=== PATIENT | male | born 1950 | race Caucasian/White ===

== ENCOUNTER 2018-02-03 10:13 | Outpatient (CLI) | payer MEDICARE, OTHER ==
--- NOTE | 2018-02-03 16:17 | XRAY Report ---
Reason: ACUTE PAIN OF RIGHT KNEE Procedure Date: 02/03/2018 Accession Number: [id number] / [id number] Procedure: XR - Femur 2V RT CPT Code: FULL RESULT: EXAM: RIGHT FEMUR RADIOGRAPHY EXAM DATE: 02/03/2018 10:28 AM. CLINICAL HISTORY: Acute pain of right knee. COMPARISON: None. TECHNIQUE: 2 views. FINDINGS: Bones: Sclerotic foci is seen throughout the appendicular skeleton, suggestive of osseous metastatic disease which is consistent with partially visualized prostatic radiation seeds. No fracture is seen. Joints: The visualized hip and knee joints are normal. No effusions. Soft Tissues: There is advanced atherosclerotic disease. IMPRESSION: Metastatic osseous disease. RADIA
== END 2018-02-03 10:14 | disposition home or self-care (01) ==
LOC: DI 10:13
DX: C79.51 Secondary malignant neoplasm of bone (principal)

== ENCOUNTER 2018-05-26 10:42 | Outpatient (CLI) | payer MEDICARE, OTHER | END 2018-05-26 10:43 | disposition critical access hospital (66) | LOC: EMS 10:42 | PROVIDERS: ATTEND Surgery | DX: R10.30 Lower abdominal pain, unspecified (principal); M79.605 Pain in left leg; M79.604 Pain in right leg; C61 Malignant neoplasm of prostate | CPT/HCPCS: A0425; A0429 ==

== ENCOUNTER 2018-05-26 11:15 | Emergency (ER) | payer MEDICARE, OTHER ==
[2018-05-26] MEDS ORDERED: HYDROmorphone 1 MG/ML CARPUJECT IVP STA (11:33)
[2018-05-26] MEDS ORDERED: KETOROLAC 30 MG/ML VIAL IVP STA (11:33)
[2018-05-26] MEDS ORDERED: SODIUM CHLORIDE 0.9% 1,000 ML IV ONE (11:33)
[2018-05-26] MEDS ORDERED: ONDANSETRON 4 MG/2 ML VIAL IVP STA (11:33)
--- NOTE | 2018-05-26 11:36 | ED Physician Documentation ---
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 He states the pain in his back and groin are unrelenting and the pain regimen he has been on has been ineffective. He has been taking morphine sulfate 15 3 times daily and oxycodone 5 1-2 every 4 hours. The patient states that he does not otherwise feel ill but he has had some nausea. Review of Systems Constitutional: denies: Fever, Chills Eyes: denies: Decreased vision Ears: denies: Ear pain Nose: denies: Rhinorrhea / runny nose, Congestion Throat: denies: Sore throat Cardiac: denies: Chest pain / pressure, Palpitations Respiratory: denies: Dyspnea, Cough GI: reports: Abdominal Pain, Nausea, Vomiting : denies: Dysuria, Frequency Skin: denies: Rash Musculoskeletal: reports: Back pain, Extremity pain. denies: Neck pain Neurologic: denies: Generalized weakness, Focal weakness, Numbness PD PAST MEDICAL HISTORY - Present Medications Home Medications: Ambulatory Orders Medication Instructions Recorded Confirmed RX: Atorvastatin Calcium 05/26/18 RX: Dexamethasone 05/26/18 RX: Docusate Sodium 05/26/18 RX: LORazepam [Lorazepam] 05/26/18 RX: Lisinopril 05/26/18 RX: Morphine ER 15 mg PO BID 05/26/18 05/26/18 RX: Omeprazole 05/26/18 RX: Prednisone 05/26/18 RX: oxyCODONE [Roxicodone] 1 - 2 tab PO Q6HR 05/26/18 05/26/18 - Allergies Allergies/Adverse Reactions: Allergies Allergy/AdvReac Type Severity Reaction Status Date / Time No Known Drug Allergies Allergy Verified 05/26/18 11:34 PD ED PE NORMAL - Vitals Vital signs reviewed: Yes (hypertensive ) - General General: Alert and oriented X 3, Well developed/nourished, Other (68 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, No motor deficit, No sensory deficit, Normal speech Eye Opening: Spontaneous Motor: Obeys Commands Verbal: Oriented GCS Score: 15 - Psych Psych: Normal mood Results - Vitals Vitals: Vital Signs - 24 hr 05/26/18 05/26/18 05/26/18 11:18 12:08 13:00 Temperature 36.0 C L Heart Rate 100 96 101 H Respiratory 16 16 16 Rate Blood Pressure 131/76 H 144/79 H 139/74 H O2 Saturation 98 97 97 05/26/18 13:42 Temperature Heart Rate 102 H Respiratory 18 Rate Blood Pressure 122/72 O2 Saturation 97 Oxygen O2 Source Room air - Labs Labs: Laboratory Tests 05/26/18 05/26/18 05/26/18 11:56 11:56 11:56 WBC 11.5 H RBC 4.12 L Hgb 13.1 L Hct 38.1 L MCV 92.5 MCH 31.8 H MCHC 34.3 RDW 16.7 H Plt Count 155 MPV 7.7 Neut # (Auto) 9.6 H Lymph # (Auto) 0.7 L [place] # (Auto) 0.8 Eos # (Auto) 0.3 Baso # (Auto) 0.0 Absolute Nucleated RBC 0.00 Nucleated RBC % 0.0 Sodium 133 L Potassium 4.3 Chloride 95 L Carbon Dioxide 25 Anion Gap 13.0 BUN 28 H Creatinine 0.9 Estimated GFR (MDRD) 83 L Glucose 161 H Calcium 9.3 Total Bilirubin 0.7 AST 59 H ALT 28 Alkaline Phosphatase 389 H Troponin I < 0.04 Total Protein 7.2 Albumin 3.6 Globulin 3.6 Albumin/Globulin Ratio 1.0 Lipase 23 Urine Color Urine Clarity Urine pH Ur Specific Purdy Urine Protein Urine Glucose (UA) Urine Ketones Urine Occult Blood Urine Nitrite Urine Bilirubin Urine Urobilinogen Ur Leukocyte Esterase Urine RBC Urine WBC Ur Squamous Epith Cells Urine Bacteria Urine Mucus Ur Microscopic Review Urine Culture Comments 05/26/18 12:34 WBC RBC Hgb Hct MCV MCH MCHC RDW Plt Count MPV Neut # (Auto) Lymph # (Auto) [place] # (Auto) Eos # (Auto) Baso # (Auto) Absolute Nucleated RBC Nucleated RBC % Sodium Potassium Chloride Carbon Dioxide Anion Gap BUN Creatinine Estimated GFR (MDRD) Glucose Calcium Total Bilirubin AST ALT Alkaline Phosphatase Troponin I Total Protein Albumin Globulin Albumin/Globulin Ratio Lipase Urine Color DARK YELLOW Urine Clarity CLEAR Urine pH 5.5 Ur Specific [place] >=1.030 H Urine Protein 100 H Urine Glucose (UA) NEGATIVE Urine Ketones NEGATIVE Urine Occult Blood NEGATIVE Urine Nitrite NEGATIVE Urine Bilirubin NEGATIVE Urine Urobilinogen 0.2 (NORMAL) Ur Leukocyte Esterase NEGATIVE Urine RBC 0-5 Urine WBC 0-3 Ur Squamous Epith Cells NONE SEEN Urine Bacteria None Seen Urine Mucus Moderate Strands Ur Microscopic Review INDICATED Urine Culture Comments NOT INDICATED Procedures - IVC sono (time) 1130 Bedside IVC sono: IVC measures (cm) (1.04), IVC collapsed c insp (cm) (completee), Dehydration (est 1-2 liter deficit) PD MEDICAL DECISION MAKING - ED course Complexity details: reviewed results, re-evaluated patient, considered differential, d/w patient ED course: 68-year-old male with a tumor to his spine has had some recent radiation therapy and today he is having some issue with loss of pain control and dehydration. He is hydrated here in the emergency department he is given some intravenous Dilaudid and some dexamethasone and he feels much improved. I have asked him to increase his dose of his long-acting morphine to 30 mg in the morning. He will see his oncologist tomorrow for further advice. Today this appears to be a pain crisis and he does get relief with treatment. Departure - Departure Disposition: 01 Home, Self Care Clinical Impression: Dehydration due to radiation, Back pain Condition: Stable Instructions: ED Dehydration, NARCOTIC, Oral Follow-Up: NISSA LUCAS PA-C [Primary Care Provider] - Comments: Increase your dose of morphine to 30mg in the morning and 15 at night. Discharge Date/Time: 05/26/18 13:44
[2018-05-26 12:08] LABS: BASOPHILS % (AUTO) 0.2 %; EOSINOPHILS # (AUTO) 0.3 10^3/uL (0.0-0.7); EOSINOPHILS % (AUTO) 2.5 %; HGB - HEMOGLOBIN 13.1 g/dL (14.0-18.0); LYMPHOCYTES # (AUTO) 0.7 10^3/uL (1.5-3.5); LYMPHOCYTES % (AUTO) 6.4 %; MEAN CORPUSCULAR HEMOGLOBIN 31.8 pg (27.0-31.0); MEAN CORPUSCULAR HGB CONC 34.3 g/dL (32.0-36.0); MEAN CORPUSCULAR VOLUME 92.5 fL (80.0-94.0); MEAN PLATELET VOLUME 7.7 fL (7.4-11.4); MONOCYTES # (AUTO) 0.8 10^3/uL (0.0-1.0); MONOCYTES % (AUTO) 7.1 %; NEUTROPHILS # (AUTO) 9.6 10^3/uL (1.5-6.6); NEUTROPHILS % (AUTO) 83.8 %; PLT - PLATELET COUNT 155 10^3/uL (130-450); RED BLOOD COUNT 4.12 10^6/uL (4.70-6.10); RED CELL DISTRIBUTION WIDTH 16.7 % (12.0-15.0); WHITE BLOOD COUNT 11.5 x10^3/uL (4.8-10.8)
[2018-05-26 12:19] LABS: ALBUMIN 3.6 g/dL (3.2-5.5); BILIRUBIN,TOTAL 0.7 mg/dL (0.2-1.0); CALCIUM 9.3 mg/dL (8.5-10.3); CREATININE 0.9 mg/dL (0.6-1.2); TOTAL PROTEIN 7.2 g/dL (6.7-8.2)
[2018-05-26 12:45] LABS: BILIRUBIN,URINE NEGATIVE (NEGATIVE); GLUCOSE, URINE (UA) NEGATIVE (NEGATIVE); KETONES,URINE (UA) NEGATIVE (NEGATIVE); LEUKOCYTE ESTERASE, URINE NEGATIVE (NEGATIVE); NITRITE,URINE NEGATIVE (NEGATIVE); OCCULT BLOOD,URINE NEGATIVE (NEGATIVE); PH,URINE 5.5 PH (5.0-7.5); PROTEIN,URINE 100 mg/dL (NEGATIVE); UROBILINOGEN,URINE 0.2 (NORMAL) E.U./dL (NORMAL)
[2018-05-26 12:54] LABS: CLARITY,URINE CLEAR (CLEAR)
[2018-05-26 13:05] LABS: BACTERIA,URINE None Seen /HPF (None Seen); MUCUS,URINE Moderate Strands; RBC,URINE 0-5 /HPF (0-5); SQUAMOUS EPITHELIAL CELL,UR NONE SEEN (<= Few)
[2018-05-26 13:43] VITALS: BP 122/72
== END 2018-05-26 13:44 | disposition home or self-care (01) ==
LOC: EDUNIT# → ED 11:15
DX: E86.0 Dehydration (principal); M54.9 Dorsalgia, unspecified; R10.30 Lower abdominal pain, unspecified; T66.XXXA Radiation sickness, unspecified, initial encounter; Y84.2 Radiological procedure and radiotherapy as the cause of abnormal reaction of the patient, or of later complication, without mention of misadventure at the time of the procedure; D49.2 Neoplasm of unspecified behavior of bone, soft tissue, and skin
CPT/HCPCS: 36415; 80053; 81001; 83690; 84484; 85025; 96361; 96374; 99283; 99284; J1170; 81003; 87086

== ENCOUNTER 2018-06-09 16:31 | Outpatient (CLI) | payer MEDICARE, OTHER | END 2018-06-09 16:32 | disposition critical access hospital (66) | LOC: EMS 16:31 | PROVIDERS: ATTEND Surgery | DX: R53.1 Weakness (principal) | CPT/HCPCS: A0425; A0429 ==

== ENCOUNTER 2018-06-09 17:07 | Inpatient (IN) | payer MEDICARE, OTHER ==
--- NOTE | 2018-06-09 17:51 | ED Physician Documentation ---
History of Present Illness - Stated complaint Stated Complaint: WEAKNESS - Chief complaint Chief Complaint: General - History obtained from History obtained from: Patient - History of Present Illness Timing: Other (This is a 68-year-old gentleman with metastatic prostate cancer to bone. He started new chemotherapy 6 days ago. He get infusion at the [facility]. Over the next few days he has developed profound weakness and he has not been able to get up or walk in the last 3 or 4 days. He is not eating or drinking well but he denies any pain. There is no back or abdominal pain. He is not nauseous. He is mildly short of breath.) Review of Systems Constitutional: denies: Fever, Chills Nose: denies: Rhinorrhea / runny nose, Congestion Cardiac: denies: Chest pain / pressure, Palpitations Respiratory: reports: Dyspnea. denies: Cough GI: denies: Abdominal Pain, Nausea, Vomiting PD PAST MEDICAL HISTORY - Past Medical History Past Medical History: Yes Cardiovascular: High cholesterol Respiratory: None Neuro: CVA, Other Endocrine/Autoimmune: None GI: GERD, Other : Kidney stones, Other HEENT: None Psych: Anxiety Musculoskeletal: Other Derm: None Other Past Medical History: prostate cancer - Past Surgical History Past Surgical History: Yes - Present Medications Home Medications: Ambulatory Orders Medication Instructions Recorded Confirmed Atorvastatin Calcium 1 tab ORAL DAILY 05/26/18 06/09/18 Dexamethasone 1 tab ORAL DAILY 05/26/18 06/09/18 Docusate Sodium 1 cap ORAL DAILY 05/26/18 06/09/18 LORazepam [Lorazepam] 1 - 2 tab ORAL Q6HR PRN 05/26/18 06/09/18 Morphine ER 15 mg PO BID PRN 05/26/18 06/09/18 Omeprazole 1 tab ORAL DAILY 05/26/18 06/09/18 Prednisone 5 mg ORAL BID 05/26/18 06/09/18 oxyCODONE [Roxicodone] 1 - 2 tab PO Q6HR PRN 05/26/18 06/09/18 Prochlorperazine Maleate 10 mg ORAL Q6HR PRN 06/09/18 06/09/18 [Compazine] - Allergies Allergies/Adverse Reactions: Allergies Allergy/AdvReac Type Severity Reaction Status Date / Time No Known Drug Allergies Allergy Verified 05/26/18 11:34 - Social History Does the pt smoke?: No Smoking Status: Never smoker Does the pt drink ETOH?: No Does the pt have substance abuse?: No - Immunizations Immunizations are current?: Yes - POLST Patient has POLST: No PD ED PE NORMAL - Vitals Vital signs reviewed: Yes (Tachycardic) - General General: Alert and oriented X 3, No acute distress (Pale) - HEENT HEENT: PERRL, EOMI - Neck Neck: Supple, no meningeal sign, No bony TTP - Cardiac Cardiac: RRR (Tachycardic), No murmur - Respiratory Respiratory: No respiratory distress, Clear bilaterally - Abdomen Abdomen: Normal bowel sounds, Soft, Non tender - Back Back: No CVA TTP, No spinal TTP - Derm Derm: Normal color, Warm and dry - Extremities Extremities: No edema, No calf tenderness / cord - Neuro Neuro: Alert and oriented X 3, Normal speech Results - Vitals Vitals: Vital Signs - 24 hr 06/09/18 17:15 Temperature 37 C Heart Rate 118 H Respiratory 16 Rate Blood Pressure 142/84 H O2 Saturation 96 Oxygen O2 Source Room air - EKG (time done) 1805 Rate: Rate (enter#) (126) Rhythm: Sinus tachycardia, LAE [place]: Normal Intervals: Normal FL QRS: Normal Ischemia: Q waves (inferior) Computer interpretation: Agree with computer - Labs Labs: Laboratory Tests 06/09/18 06/09/18 06/09/18 18:01 18:01 18:01 WBC 9.0 RBC 4.55 L Hgb 14.6 Hct 43.0 MCV 94.4 H MCH 32.0 H MCHC 33.9 RDW 17.2 H Plt Count 60 L MPV 8.5 Neut # (Auto) Not Reportable Lymph # (Auto) Not Reportable [place] # (Auto) Not Reportable Eos # (Auto) Not Reportable Baso # (Auto) Not Reportable Absolute Nucleated RBC Not Reportable Total Counted 100 Band Neuts % (Manual) 16 H Abnorm Lymph % (Manual) 0 Nucleated RBC % Not Reportable Neutrophils # (Manual) 8.5 H Lymphocytes # (Manual) 0.3 L Monocytes # (Manual) 0.3 Eosinophils # (Manual) 0.0 Basophils # (Manual) 0.0 Differential Comment MANUAL DIFFERENTIAL Manual Slide Review Indicated Platelet Estimate DECREASED (<130,000) Platelet Morphology NORMAL EMERITA RBC Morph Micro Appear 1+ MACROCYTOSIS D-Dimer 1005.5 H Sodium 126 L Potassium 5.8 H Chloride 91 L Carbon Dioxide 22 Anion Gap 13.0 BUN 43 H Creatinine 1.0 Estimated GFR (MDRD) 74 L Glucose 231 H Lactic Acid Calcium 8.7 Total Bilirubin 1.7 H AST 75 H ALT 60 Alkaline Phosphatase 343 H Troponin I Total Protein 6.1 L Albumin 3.4 Globulin 2.7 Albumin/Globulin Ratio 1.3 Lipase 26 06/09/18 06/09/18 18:01 18:01 WBC RBC Hgb Hct MCV MCH MCHC RDW Plt Count MPV Neut # (Auto) Lymph # (Auto) [place] # (Auto) Eos # (Auto) Baso # (Auto) Absolute Nucleated RBC Total Counted Band Neuts % (Manual) Abnorm Lymph % (Manual) Nucleated RBC % Neutrophils # (Manual) Lymphocytes # (Manual) Monocytes # (Manual) Eosinophils # (Manual) Basophils # (Manual) Differential Comment Manual Slide Review Platelet Estimate Platelet Morphology RBC Morph Micro Appear D-Dimer Sodium Potassium Chloride Carbon Dioxide Anion Gap BUN Creatinine Estimated GFR (MDRD) Glucose Lactic Acid 4.8 H* Calcium Total Bilirubin AST ALT Alkaline Phosphatase Troponin I 0.04 Total Protein Albumin Globulin Albumin/Globulin Ratio Lipase - Rads (name of study) CT PA Radiology: EMP read contemporaneously (Numerous right-sided pulmonary emboli without evidence of heart strain, diffuse osteoblastic skeletaldisease concerning for metastases.) PD MEDICAL DECISION MAKING - ED course ED course: This is a 68-year-old gentleman with active prostate cancer presents with diffuse weakness and dyspnea on review of systems causing a d-dimer to be drawn which was quite high and reflex to a CT of the chest showing significant right- sided pulmonary emboli burden without evidence of right heart strain. He was started on heparin and I spoke with Dr. Ruiz to for admission at 7:39 PM. Departure - Departure Disposition: 66 [facility] DC/Xfer Clinical Impression: Prostate cancer, Dehydration Pulmonary embolism Qualifiers: Pulmonary embolism type: other Chronicity: acute Acute cor pulmonale presence: without acute cor pulmonale Qualified Code(s): I26.99 - Other pulmonary embolism without acute cor pulmonale Condition: Serious
[2018-06-09] MEDS ORDERED: SODIUM CHLORIDE 0.9% 1,000 ML IV ONE ×2 (17:52→18:27)
[2018-06-09 18:11] LABS: BASOPHILS % (AUTO) 0.9 %; HGB - HEMOGLOBIN 14.6 g/dL (14.0-18.0); LYMPHOCYTES % (AUTO) 1.2 %; MEAN CORPUSCULAR HGB CONC 33.9 g/dL (32.0-36.0); MEAN CORPUSCULAR VOLUME 94.4 fL (80.0-94.0); MEAN PLATELET VOLUME 8.5 fL (7.4-11.4); MONOCYTES % (AUTO) 1.3 %; NEUTROPHILS % (AUTO) 96.6 %; PLT - PLATELET COUNT 60 10^3/uL (130-450); RED BLOOD COUNT 4.55 10^6/uL (4.70-6.10); RED CELL DISTRIBUTION WIDTH 17.2 % (12.0-15.0)
[2018-06-09 18:15] LABS: ABNORMAL LYMPHS % (MANUAL) 0 %
[2018-06-09 18:22] LABS: ALBUMIN 3.4 g/dL (3.2-5.5); ALBUMIN/GLOBULIN RATIO 1.3 (1.0-2.2); BILIRUBIN,TOTAL 1.7 mg/dL (0.2-1.0); CALCIUM 8.7 mg/dL (8.5-10.3); TOTAL PROTEIN 6.1 g/dL (6.7-8.2)
[2018-06-09] MEDS ORDERED: IOVERSOL 320 100 ML VIAL IVP ONE ×2 (18:37→18:41)
[2018-06-09 19:00] LABS: BAND NEUTROPHILS % (MANUAL) 16 %; DIFFERENTIAL COMMENT MANUAL DIFFERENTIAL; LYMPHOCYTES # (MANUAL) 0.3 10^3/uL (1.5-3.5); LYMPHOCYTES % (MANUAL) 3 %; MONOCYTES # (MANUAL) 0.3 10^3/uL (0.0-1.0); NEUTROPHILS # (MANUAL) 8.5 10^3/uL (1.5-6.6); NEUTROPHILS % (MANUAL) 78 %; PLATELET ESTIMATE, MANUAL DECREASED (<130,000) (NORMAL); PLATELET MORPHOLOGY NORMAL APP (NORMAL); RBC MORPHOLOGY (MULTIPLE) 1+ MACROCYTOSIS (NORMAL)
[2018-06-09] MEDS ORDERED: HEPARIN 25000UNITS/500ML (D5W) 25,000 UNIT/500 ML BAG IV STA (19:03)
[2018-06-09] MEDS: IOVERSOL 320 100 ML VIAL IVP ONE (19:14)
[2018-06-09] MEDS ORDERED: HEPARIN 5,000 UNIT/ML VIAL ONE (19:18)
--- NOTE | 2018-06-09 19:24 | CT Report ---
Reason: weak, high dimer, dyspnea Procedure Date: 06/09/2018 Accession Number: [id number] / [id number] Procedure: CT - Chest Angio (PE) CPT Code: FULL RESULT: EXAM: CT ANGIOGRAM CHEST EXAM DATE: 06/09/2018 07:10 PM. CLINICAL HISTORY: Weak, high dimer, dyspnea. COMPARISON: None. TECHNIQUE: Routine helical imaging was performed through the chest in the pulmonary arterial phase. IV Contrast: OPTI 320 80 ML. Reconstructions: Coronal 3-D MIP reconstructions.Sagittal and coronal. In accordance with CT protocol optimization, one or more of the following dose reduction techniques were utilized for this exam: automated exposure control, adjustment of mA and/or KV based on patient size, or use of iterative reconstructive technique. FINDINGS: Pulmonary Arteries: Diagnostic quality: Adequate through the segmental arteries. There is a right pulmonary artery embolism with extension into numerous segmental branches. No main pulmonary artery saddle embolism or left lung emboli seen. RV/LV is within normal limits. There is no interventricular septal bowing. There is no reflux of contrast material in the IVC. Lungs/Pleura: No consolidation, nodules, or edema. No effusions or pneumothorax. Mediastinum: Normal heart size. No pericardial effusion. No lymphadenopathy. Coronary artery calcifications noted. Thoracic Aorta: Unremarkable. Upper Abdomen: Unremarkable. Other: Diffuse skeletal sclerosis. IMPRESSION: 1. Numerous right pulmonary emboli. No evidence of right heart strain. 2. Diffuse osteoblastic skeletal disease concerning for metastases. RADIA
[2018-06-09] MEDS ORDERED: MORPHINE IR 15 MG TABLET PO STA (19:35)
[2018-06-09] MEDS ORDERED: ACETAMINOPHEN 325 MG TABLET PO PRN (20:51)
[2018-06-09] MEDS ORDERED: SODIUM CHLORIDE FLUSH 0.9% 10 ML SYRINGE IVP PRN (20:51)
[2018-06-09] MEDS ORDERED: SODIUM CHLORIDE 0.9% 1,000 ML IV SCH (21:00)
[2018-06-09] MEDS ORDERED: LABETALOL 20 MG/4 ML SYRINGE IVP PRN (21:06)
[2018-06-09 22:18] LABS: INR 1.2 (0.8-1.2); PT - PROTHROMBIN TIME 13.2 secs (9.9-12.6)
[2018-06-09 22:26] LABS: PARTIAL THROMBOPLASTIN TIME 90.6 secs (24.9-33.3)
[2018-06-09 23:35] LABS: BILIRUBIN,URINE NEGATIVE (NEGATIVE); GLUCOSE, URINE (UA) 100 mg/dL (NEGATIVE); KETONES,URINE (UA) NEGATIVE (NEGATIVE); LEUKOCYTE ESTERASE, URINE NEGATIVE (NEGATIVE); NITRITE,URINE NEGATIVE (NEGATIVE); OCCULT BLOOD,URINE MODERATE (NEGATIVE); PH,URINE 5.5 PH (5.0-7.5); PROTEIN,URINE 100 mg/dL (NEGATIVE); UROBILINOGEN,URINE 0.2 (NORMAL) E.U./dL (NORMAL)
[2018-06-09 23:37] LABS: CLARITY,URINE CLEAR (CLEAR)
[2018-06-09 23:56] LABS: BACTERIA,URINE None Seen /HPF (None Seen); RBC,URINE None Seen /HPF (0-5); SQUAMOUS EPITHELIAL CELL,UR NONE SEEN (<= Few)
[2018-06-10] MEDS ORDERED: diltiaZEM INJ 5 MG/ML VIAL IVP ONE (00:03)
[2018-06-10] MEDS: oxyCODONE 5 MG TABLET PO PRN ×3 (00:25→15:49)
[2018-06-10] MEDS: SODIUM CHLORIDE FLUSH 0.9% 10 ML SYRINGE IVP SCH ×3 (00:26→18:58)
[2018-06-10] MEDS ORDERED: IOVERSOL 320 100 ML VIAL IVP ONE (00:45)
[2018-06-10 00:50] LABS: CALCIUM 8.4 mg/dL (8.5-10.3)
[2018-06-10] MEDS ORDERED: METOPROLOL 5 MG/5 ML VIAL IVP STA (01:12)
[2018-06-10] MEDS: IOVERSOL 320 100 ML VIAL IVP ONE (01:37)
[2018-06-10] MEDS: SODIUM CHLORIDE 0.9% 1,000 ML IV SCH ×5 (01:48→21:59)
--- NOTE | 2018-06-10 02:02 | CT Report ---
Reason: concern for infectious or ischemia. LA 6.5 Procedure Date: 06/10/2018 Accession Number: [id number] / [id number] Procedure: CT - Abdomen/Pelvis W/ CPT Code: FULL RESULT: EXAM: CT ABDOMEN AND PELVIS EXAM DATE: 06/10/2018 01:44 AM. CLINICAL HISTORY: Concern for infectious or ischemia. LA 6. 5. COMPARISONS: None. TECHNIQUE: Routine helical CT imaging was performed through the abdomen and pelvis. IV contrast: 60ML [id number]. Enteric contrast: No. Reconstructions: Coronal and sagittal. In accordance with CT protocol optimization, one or more of the following dose reduction techniques were utilized for this exam: automated exposure control, adjustment of mA and/or KV based on patient size, or use of iterative reconstructive technique. FINDINGS: Lung Bases: Minimal atelectasis. Liver: Normal. No masses. Gallbladder/Bile Ducts: Unremarkable. Spleen: Normal. Pancreas: Normal. Adrenal Glands: Normal. Kidneys: Normal. No masses or hydronephrosis. Peritoneal Cavity/Bowel: Normal. No free fluid, free air or adenopathy. No masses or acute inflammatory process. The appendix is well visualized and normal. Pelvic Organs: Contrast in the urinary bladder from previous CT. Brachytherapy seeds in the prostate. Vasculature: Atherosclerotic calcifications. No aneurysm. Bones: Diffuse osseous sclerosis, likely representing blastic prostate cancer metastases. Other: Left inguinal hernia, containing fat. IMPRESSION: No evidence of infection or bowel ischemia. RADIA
[2018-06-10] MEDS: HEPARIN 25000UNITS/500ML (D5W) 25,000 UNIT/500 ML BAG IV SCH ×2 (02:03→15:15)
[2018-06-10] MEDS: diltiaZEM INJ 125 MG in DEXTROSE 5% 100 ML IV SCH ×3 (02:10→23:46)
--- NOTE | 2018-06-10 04:46 | HISTORY & PHYSICAL EXAMINATION ---
Chief Complaint - Chief Complaint Chief Complaint: fatigue History of Present Illness - Admitted From Admitted From:: [facility] ED - History Obtained From History obtained from: patient - History of Present Illness HPI Comment/Other: Patient is a 68 y/o male with metastatic prostate cancer who follows with Dr Sherie Lakhani at the [facility]. He presented to the ED today with complain of not being able to stand up, thus not getting out of his room for the past 3-4 days. He reports being somewhat short of breath and complains of lower back pain. He denied chest pain, abd pain, nausea, vomiting or chills. He was noted to have a pale appearance in the ED and was tachycardic. At bedside the patient was getting worked up about not being able to reach his family. His blood pressure during this time was 180. It is reported that he started a new ch emotherapy last week. He can only recall paxil in his regimen. Work up for his presentation included a DDimer which came back significantly elevated. 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 As a result he is being admitted for further treatment History - Past Medical History Cardiovascular: reports: Hypertension (stopped taking lisinopril last week.), High cholesterol Respiratory: reports: None Neuro: reports: CVA, Other Endocrine/Autoimmune: reports: None GI: reports: GERD, Other : reports: Kidney stones, Other HEENT: reports: None Psych: reports: Anxiety Musculoskeletal: reports: Other Derm: reports: None MRSA Hx?: No Other Past Medical History: prostate cancer - Family & Social History Living arrangement: At home Living Situation: With family (with his son's family comprising of his and 3 children) - Substance History Use: Uses substance without health or social issues: NONE - POLST Patient has POLST: Yes POLST Status: Full Code Meds/Allgy - Home Medications Home Medications: Ambulatory Orders Medication Instructions Recorded Confirmed Atorvastatin Calcium 1 tab ORAL DAILY 05/26/18 06/09/18 Dexamethasone 1 tab ORAL DAILY 05/26/18 06/09/18 Docusate Sodium 1 cap ORAL DAILY 05/26/18 06/09/18 LORazepam [Lorazepam] 1 - 2 tab ORAL Q6HR PRN 05/26/18 06/09/18 Morphine ER 15 mg PO BID PRN 05/26/18 06/09/18 Omeprazole 1 tab ORAL DAILY 05/26/18 06/09/18 Prednisone 5 mg ORAL BID 05/26/18 06/09/18 oxyCODONE [Roxicodone] 1 - 2 tab PO Q6HR PRN 05/26/18 06/09/18 Prochlorperazine Maleate 10 mg ORAL Q6HR PRN 06/09/18 06/09/18 [Compazine] - Allergies Allergies/Adverse Reactions: Allergies Allergy/AdvReac Type Severity Reaction Status Date / Time No Known Drug Allergies Allergy Verified 05/26/18 11:34 Review of Systems - Constitutional Constitutional: reports: Fatigue, Weakness. denies: Fever - Eyes Eyes: denies: Pain, Blurred vision, Dipolpia - Ears, Nose & Throat Ears, Nose & Throat: denies: Ear pain, Nasal pain, Nasal discharge, Sore throat - Cardiovascular Cariovascular: reports: Lightheadedness. denies: Irregular heart rate, Palpitations - Respiratory Respiratory: reports: SOB at rest. denies: Cough, Wheezing - Gastrointestinal Gastrointestinal: denies: Abdominal pain, Abdominal distention, Constipation, Diarrhea, Nausea, Vomiting - Genitourinary Genitourinary: reports: Incontinence. denies: Dysuria, Frequency, Urgency, Hematuria, Flank pain - Musculoskeletal Musculoskeletal: reports: Back pain - Integumentary Integumentary: denies: Rash, Lesions, Dryness - Neurological Neurological: reports: Dizziness. denies: General weakness, Headache - Psychiatric Psychiatric: denies: Depression, Anxiety - Endocrine Endocrine: denies: Polyuria, Polydypsia, Polyphagia - Hematologic/Lymphatic Hematologic/Lymphatic: denies: Anemia, Bruising, Petechiae Prior Level of Functionality: Patient lives with his son and his son's family. His son's assists with setting up his pills. He is supposed to use a cane walking but does not always do. 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 He is also not supposed to be driving. Exam - Vital Signs Reviewed Vital Signs: Yes Vital Signs: Vital Signs x48h Temp Pulse Pulse Resp BP BP BP 06/10/18 02:10 94/83 H 06/10/18 01:37 110/82 H 06/10/18 00:50 177 H 95/66 06/10/18 00:45 130 H 124/83 H 06/10/18 00:40 157 H 102/61 06/10/18 00:22 117/79 06/09/18 23:35 37.0 C 97 18 156/86 H 06/09/18 22:25 149 H 139/90 H 06/09/18 21:49 36.8 C 104 H 16 181/98 H 06/09/18 20:47 36.6 C 127 H 18 159/85 H Pulse Ox 06/10/18 02:10 06/10/18 01:37 06/10/18 00:50 06/10/18 00:45 06/10/18 00:40 06/10/18 00:22 06/09/18 23:35 96 06/09/18 22:25 06/09/18 21:49 96 06/09/18 20:47 92 - Physical Exam General Appearance: positive: No acute distress, Alert, Other (Emotional, angry and getting more worked up) Eyes Bilateral: positive: Normal inspection, PERRL, EOMI ENT: positive: ENT inspection nml, No signs of dehydration Neck: positive: Nml inspection, Thyroid nml, No JVD, Trachea midline Respiratory: positive: Chest non-tender, No respiratory distress, Breath sounds nml. negative: Wheezes, Rales, Rhonchi Cardiovascular: positive: No murmur, Tachycardia Abdomen: positive: Non-tender, No organomegaly, Nml bowel sounds, No distention, Tenderness. negative: Guarding, Rebound, Hepatomegaly, Splenomegaly Back: positive: Nml inspection Skin: positive: Color nml, No rash, Warm, Dry, Pallor. negative: Diaphoresis, Skin rash Extremities: positive: Non-tender, Nml appearance, No pedal edema Neurologic/Psychiatric: positive: Oriented x3 Sepsis Event Note (H) - Evaluation Current Stage of Sepsis: Ruled out Conclusion/Plan - Problem List (1) Pulmonary embolism Conclusion/Plan: Like due to hypercoagulable state of prostate cancer Patient started on heparin gtt per protocol Patient will need to be switched to an oral anticoag 2D echo ordered to rule out right heart strain Qualifiers: Pulmonary embolism type: other Chronicity: acute Acute cor pulmonale presence: without acute cor pulmonale Qualified Code(s): I26.99 - Other pulmonary embolism without acute cor pulmonale (2) Atrial fibrillation with rapid ventricular response Conclusion/Plan: New onset. Suspect 2/2 PE Pulse was as high as 150's Currently on heparin drip Patient was given 10mg IV push of diltiazem with no change in heart rate. This was followed by 5mg IV of metoprolol. With still no change He was transferred to the ICU on diltiazem drip. If no change, next consideration will be digoxin 2D echo pending. Will trend troponin (3) Prostate cancer metastatic to bone Conclusion/Plan: Patient follows with Dr Sherie Lakhani At [facility]. Started new chemotherapy last week He is not sure of the full regimen but includes paxil Patient had seeds implanted in 2004 (4) Lactic acidosis Conclusion/Plan: Etiology undetermined ? Infection vs Dehydration Patient is afebrile. WBC normal CT chest abdomen/pelvis and UA were negative for infection There are no wounds/ulcers on patient's body. Blood cultures drawn 2D echo pending. Hydrating patient. Will continue trending lactic acid (5) Elevated alkaline phosphatase level Conclusion/Plan: Suspect 2/[address] abd/pelvis was negative for biliary duct dilation (6) Hyperkalemia Conclusion/Plan: Regular insulin 10mg IV + 1 amp dextrose 50 Will recheck. Hydrating patient (7) Back pain Conclusion/Plan: ?Acute on chronic ?Multifactorial 2/2 Metastatic cancer Managing pain with oxycodone. Patient also on morphine prn at home. Will resume once verified Qualifiers: Back pain location: low back pain Chronicity: acute Back pain laterality: bilateral Qualified Code(s): M54.41 - Lumbago with sciatica, right side (8) Hyperlipidemia Conclusion/Plan: On atorvastatin (9) Anxiety Conclusion/Plan: On lorazepam (10) GERD (gastroesophageal reflux disease) Conclusion/Plan: Protonix ordered - Lab Results Fish Bones: 06/09/18 18:01 06/10/18 00:30 Core Measures - Anticipated LOS I expect patient to be DC'd or transferred within 96 hours.: Yes - DVT/VTE - Prophylaxis VTE/DVT Device ordered at admit?: Yes VTE/DVT Prophylaxis med ordered at admit?: Yes
[2018-06-10] MEDS ORDERED: INSULIN REGULAR HUMAN 100 UNIT/1 ML 10 ML MDV IVP STA (05:37)
[2018-06-10] MEDS ORDERED: DEXTROSE 50% ABBOJECT 25 GM/50 ML SYRINGE IVP ONE (05:37)
[2018-06-10] MEDS: PANTOPRAZOLE 40 MG TABLET PO SCH (06:09)
[2018-06-10 06:18] LABS: BASOPHILS % (AUTO) 0.5 %; EOSINOPHILS % (AUTO) 0.4 %; HGB - HEMOGLOBIN 12.9 g/dL (14.0-18.0); LYMPHOCYTES # (AUTO) 0.3 10^3/uL (1.5-3.5); LYMPHOCYTES % (AUTO) 5.8 %; MEAN CORPUSCULAR HEMOGLOBIN 31.8 pg (27.0-31.0); MEAN CORPUSCULAR HGB CONC 33.4 g/dL (32.0-36.0); MEAN CORPUSCULAR VOLUME 95.3 fL (80.0-94.0); MEAN PLATELET VOLUME 8.9 fL (7.4-11.4); MONOCYTES # (AUTO) 0.1 10^3/uL (0.0-1.0); MONOCYTES % (AUTO) 2.1 %; NEUTROPHILS # (AUTO) 4.8 10^3/uL (1.5-6.6); NEUTROPHILS % (AUTO) 91.2 %; PLT - PLATELET COUNT 53 10^3/uL (130-450); RED BLOOD COUNT 4.05 10^6/uL (4.70-6.10); RED CELL DISTRIBUTION WIDTH 16.9 % (12.0-15.0); WHITE BLOOD COUNT 5.2 x10^3/uL (4.8-10.8)
[2018-06-10 09:06] LABS: CALCIUM 8.5 mg/dL (8.5-10.3); CREATININE 0.9 mg/dL (0.6-1.2)
[2018-06-10] MEDS: POLYETHYLENE GLYCOL 3350 17 GM PACKET PO SCH (09:20)
[2018-06-10 11:34] LABS: BASOPHILS % (AUTO) 0.7 %; EOSINOPHILS % (AUTO) 0.9 %; HGB - HEMOGLOBIN 13.8 g/dL (14.0-18.0); LYMPHOCYTES % (AUTO) 11.4 %; MEAN CORPUSCULAR HEMOGLOBIN 32.4 pg (27.0-31.0); MEAN CORPUSCULAR HGB CONC 34.5 g/dL (32.0-36.0); MEAN PLATELET VOLUME 9.2 fL (7.4-11.4); MONOCYTES % (AUTO) 2.8 %; NEUTROPHILS % (AUTO) 84.2 %; PLT - PLATELET COUNT 56 10^3/uL (130-450); RED BLOOD COUNT 4.26 10^6/uL (4.70-6.10); RED CELL DISTRIBUTION WIDTH 17.7 % (12.0-15.0); WHITE BLOOD COUNT 5.3 x10^3/uL (4.8-10.8)
[2018-06-10 11:35] LABS: ABNORMAL LYMPHS % (MANUAL) 0 %
[2018-06-10 12:05] LABS: BAND NEUTROPHILS % (MANUAL) 9 %; LYMPHOCYTES # (MANUAL) 0.2 10^3/uL (1.5-3.5); LYMPHOCYTES % (MANUAL) 4 %; NEUTROPHILS # (MANUAL) 5.1 10^3/uL (1.5-6.6); NEUTROPHILS % (MANUAL) 87 %
[2018-06-10 12:07] LABS: DIFFERENTIAL COMMENT MANUAL DIFFERENTIAL
[2018-06-10] MEDS ORDERED: LIDOCAINE 2% URO-JET 5 ML SYRINGE UR ONE (12:17)
[2018-06-10] MEDS: LORazepam 0.5 MG TABLET PO PRN ×2 (13:21→19:18)
[2018-06-10] MEDS ORDERED: PROCHLORPERAZINE INJ 10 MG in SODIUM CHLORIDE 0.9% 50 ML IV PRN (13:25)
[2018-06-10] MEDS: MORPHINE ER 15 MG TABLET PO PRN (14:10)
--- NOTE | 2018-06-10 17:08 | PROVIDER PROGRESS NOTE ---
Assessment/Plan - Problem List (1) Pulmonary emboli Assessment/Plan: The etiology is likely from being hypercoagulable with cancer. US of legs pending to evaluate for DVTs. Echo pending to evaluate for cor pulmonale. Pt not hypoxic. Heparin iv drip dosing was OKd by the Oncologist that was contacted last night by admitting Ball Ender. Will eventually transition to Coumadin or a NOAC. (2) Lactic acidosis Assessment/Plan: No signs of infection with normal WBC, neg CT chest for infiltrate or abd CT for source of infection or abnormal urinalysis. Potentially L.A. elevation from acute PEs or from cell break down due to recent chemotherapy. No empiric antibiotics were started therefore. Continue iv hydration. Monitor L.A. til it normalizes. (3) Atrial flutter with rapid ventricular response Assessment/Plan: TFTs were unremarkable, the etiology is undoubtedly the new pulmonary emboli. Rate control achieved intermitently with iv Diltiazem, but the slower rate did not help convert him to NSR. Will add Toprol XL 25 mg po bid. (4) Prostate cancer metastatic to bone Assessment/Plan: I spoke to Judith, the nurse of Dr Sherie Serra, his Oncologist at the [facility]. She was the one who sent him to the ER, after a [id number] called that the patient was weak and falling. The patient is in a Clinical Trial, gets liquid Pacitaxil and 2 chemo meds. They CAN cause thrombocytopenia. He does qualify for transfer to [facility] for higher level of care with specialists. I informed the patient of the conversation and he wants to think about wether he wants to be transferred. (5) Thrombocytopenia due to drugs Assessment/Plan: As above. Per the Oncologist that the admitting Ball Ender spoke to, observe the plt count closely, stop Heparin if < 50 or if signs of bleeding, Heparin chosen over Lovenox since if he needs intervention it would take longer for a Lovenox effect to resolve. (6) Hyponatremia Assessment/Plan: Pt on iv fluids for the elevated lactic acid level, using NS. Monitor BMP daily. (7) Urinary retention Assessment/Plan: He needs to stand to urinate. The residual urrine in the bladder was 390 cc and a Robertson was ordered, 400 cc drained. The patient was so uncomfortable, that he demanded the Robertson be withdrawn, which it was. Monitor I's and O's as possible. Monitor BUN/creat daily to watch for signs of uremia from obstruction. - Current Meds Current Meds: Current Medications Generic Name Dose Route Start Last Admin Trade Name Freq PRN Reason Stop Dose Admin Heparin Sodium/Dextrose 25,000 unit in 500 mls @ 35.38 mls/hr 06/09/18 22:00 06/10/18 15:15 IV 12 unit/kg/hr .Q14H8M GERRI 28.304 mls/hr Administration Protocol 15 UNIT/KG/HR Sodium Chloride 1,000 mls @ 150 mls/hr 06/09/18 23:14 06/10/18 15:18 Normal Saline 0.9% IV 150 mls/hr .Q6H40M GERRI Administration Diltiazem HCl 125 mg/ Dextrose 125 mls @ 5 mls/hr 06/10/18 01:00 06/10/18 15:26 IV 15 mg/hr .Q25H GERRI 15 mls/hr Titration Protocol 5 MG/HR Prochlorperazine Edisylate 10 52 mls @ 200 mls/hr 06/10/18 13:25 06/10/18 1 5:52 mg/ Sodium Chloride IV Infused Q6H PRN Infusion Nausea / Vomiting Lorazepam 0.5 mg 06/09/18 21:17 06/10/18 13:21 Ativan PO 0.5 mg TID PRN Administration Anxiety Morphine Sulfate 15 mg 06/10/18 12:51 06/10/18 14:10 PO 15 mg BID PRN Administration PAIN Oxycodone HCl 5 mg 06/09/18 21:16 06/10/18 15:49 Roxicodone PO 5 mg Q6H PRN Administration PAIN Pantoprazole Sodium 40 mg 06/10/18 07:00 06/10/18 06:09 Protonix PO 40 mg QDAC GERRI Administration Polyethylene Glycol 17 gm 06/10/18 09:00 06/10/18 09:20 Miralax PO Not Given DAILY GERRI Sodium Chloride 10 ml 06/10/18 01:00 06/10/18 09:20 Normal Saline Flush 0.9% IVP Not Given 0100,0900,1700 GERRI - Lab Result Fish Bone Diagrams: 06/10/18 11:23 02/13/19 08:53 - EKG Results EKG Interpreted Independently: Yes EKG Findings: Atrial flutter with 4:1 block, ventr rate 80, poss inf Q waves, poss prolonged QT interval. Since yesterday, the ventr rate is controlled now. - Additional Planning My Orders: My Active Orders 06/10/18 12:16 Robertson Insertion [RC] QSHIFT 06/10/18 12:51 Morphine ER 15 mg PO BID PRN 06/10/18 13:25 Prochlorperazine Inj [Compazine Inj] 10 mg Sodium Chloride 0.9% [Normal Saline 0.9%] 50 ml IV Q6H 06/10/18 21:00 Dexamethasone [Decadron] 8 mg PO BID 06/10/18 Lunch DIET [Regular Diet] [DIET] Subjective - Subjective Patient Reports: Resting Comfortably, Other (Is hungry, had no a.m. diet ordered by Ball Ender) Objective Vital Signs: Vital Signs - 24 hr 06/09/18 06/09/18 06/09/18 17:15 19:43 19:59 Temperature 37 C Heart Rate 118 H 103 H 106 H Heart Rate [ Brachial] Respiratory 16 16 19 Rate Blood Pressure 142/84 H 160/94 H 160/94 H Blood Pressure [Left Brachial artery] Blood Pressure [Right Brachial artery] O2 Saturation 96 95 96 06/09/18 06/09/18 06/09/18 20:47 21:49 22:25 Temperature 36.6 C 36.8 C Heart Rate 127 H Heart Rate [ 104 H 149 H Brachial] Respiratory 18 16 Rate Blood Pressure 159/85 H Blood Pressure 181/98 H [Left Brachial artery] Blood Pressure 139/90 H [Right Brachial artery] O2 Saturation 92 96 06/09/18 06/10/18 06/10/18 23:35 00:22 00:40 Temperature 37.0 C Heart Rate Heart Rate [ 97 157 H Brachial] Respiratory 18 Rate Blood Pressure 117/79 Blood Pressure [Left Brachial artery] Blood Pressure 156/86 H 102/61 [Right Brachial artery] O2 Saturation 96 06/10/18 06/10/18 06/10/18 00:45 00:50 01:37 Temperature Heart Rate Heart Rate [ 130 H 177 H Brachial] Respiratory Rate Blood Pressure 110/82 H Blood Pressure [Left Brachial artery] Blood Pressure 124/83 H 95/66 [Right Brachial artery] O2 Saturation 06/10/18 06/10/18 06/10/18 02:00 02:10 03:00 Temperature Heart Rate Heart Rate [ 141 H 145 H Brachial] Respiratory 10 L 23 Rate Blood Pressure 94/83 H Blood Pressure [Left Brachial artery] Blood Pressure 98/43 L 97/77 [Right Brachial artery] O2 Saturation 96 95 06/10/18 06/10/18 06/10/18 04:00 05:00 06:00 Temperature Heart Rate Heart Rate [ 76 77 78 Brachial] Respiratory 11 L 12 9 L Rate Blood Pressure Blood Pressure [Left Brachial artery] Blood Pressure 117/68 91/72 114/75 [Right Brachial artery] O2 Saturation 96 100 98 06/10/18 06/10/18 06/10/18 07:00 07:43 09:00 Temperature 36.0 C L 37.1 C Heart Rate Heart Rate [ 73 73 77 Brachial] Respiratory 9 L 14 10 L Rate Blood Pressure Blood Pressure [Left Brachial artery] Blood Pressure 97/70 116/64 118/62 [Right Brachial artery] O2 Saturation 96 96 96 06/10/18 06/10/18 06/10/18 10:00 11:00 11:47 Temperature Heart Rate Heart Rate [ 81 79 Brachial] Respiratory 11 L Rate Blood Pressure Blood Pressure [Left Brachial artery] Blood Pressure 118/62 134/65 H [Right Brachial artery] O2 Saturation 97 100 06/10/18 06/10/18 06/10/18 12:00 13:00 14:00 Temperature 37 C Heart Rate Heart Rate [ 75 77 76 Brachial] Respiratory 11 L 11 L 11 L Rate Blood Pressure Blood Pressure [Left Brachial artery] Blood Pressure 110/67 127/73 138/66 H [Right Brachial artery] O2 Saturation 99 98 98 06/10/18 06/10/18 06/10/18 15:00 15:26 15:28 Temperature Heart Rate Heart Rate [ 81 145 H 120 H Brachial] Respiratory 12 Rate Blood Pressure Blood Pressure [Left Brachial artery] Blood Pressure 131/65 H 158/102 H [Right Brachial artery] O2 Saturation 97 06/10/18 15:59 Temperature 37 C Heart Rate Heart Rate [ 77 Brachial] Respiratory 21 Rate Blood Pressure Blood Pressure [Left Brachial artery] Blood Pressure 108/64 [Right Brachial artery] O2 Saturation 97 Oxygen O2 Source Room air I&O (Last 24 Hrs): Intake and Output Totals x24h 06/08/18 06/09/18 06/10/18 23:59 23:59 23:59 Intake Total 2233.667 2546.031 Output Total 863 Balance 2233.667 1683.031 General: Alert, Oriented x3 HEENT: Mucous membr. moist/pink Neck: Supple, No JVD Neuro: Non Focal Cardiovascular: Regular rate, No murmurs Respiratory: No respiratory distress, Breath sounds nml Abdomen: Soft, No tenderness, Other (Obese) Extremities: No edema - Results Results: Laboratory Results WBC 5.3 x10^3/uL (4.8-10.8) 06/10/18 11:23 RBC 4.26 10^6/uL (4.70-6.10) L 06/10/18 11:23 Hgb 13.8 g/dL (14.0-18.0) L 06/10/18 11:23 Hct 40.0 % (42.0-52.0) L 06/10/18 11:23 MCV 94.0 fL (80.0-94.0) 06/10/18 11:23 MCH 32.4 pg (27.0-31.0) H 06/10/18 11:23 MCHC 34.5 g/dL (32.0-36.0) 06/10/18 11:23 RDW 17.7 % (12.0-15.0) H 06/10/18 11:23 Plt Count 56 10^3/uL (130-450) L 06/10/18 11:23 MPV 9.2 fL (7.4-11.4) 06/10/18 11:23 Neut # (Auto) Not Reportable 06/10/18 11:23 Lymph # (Auto) Not Reportable 06/10/18 11:23 Leon # (Auto) Not Reportable 06/10/18 11:23 Eos # (Auto) Not Reportable 06/10/18 11:23 Baso # (Auto) Not Reportable 06/10/18 11:23 Absolute Nucleated RBC Not Reportable 06/10/18 11:23 Total Counted 100 06/10/18 11:23 Band Neuts % (Manual) 9 % (0-10) 06/10/18 11:23 Abnorm Lymph % (Manual) 0 % 06/10/18 11:23 Nucleated RBC % Not Reportable 06/10/18 11:23 Neutrophils # (Manual) 5.1 10^3/uL (1.5-6.6) 06/10/18 11:23 Lymphocytes # (Manual) 0.2 10^3/uL (1.5-3.5) L 06/10/18 11:23 Monocytes # (Manual) 0.0 10^3/uL (0.0-1.0) 06/10/18 11:23 Eosinophils # (Manual) 0.0 10^3/uL (0-0.7) 06/10/18 11:23 Basophils # (Manual) 0.0 10^3/uL (0-0.1) 06/10/18 11:23 Differential Comment MANUAL DIFFERENTIAL 06/10/18 11:23 Manual Slide Review Indicated 06/09/18 18:01 WBC Morphology PELGER HUET ANOMALY (NORMAL) 2+ VACUOLATION (NORMAL) 06/10/18 11:23 WBC Morphology PELGER HUET ANOMALY (NORMAL) 2+ VACUOLATION (NORMAL) 06/10/18 11:23 Platelet Estimate DECREASED (<130,000) (NORMAL) 06/09/18 18:01 Platelet Morphology NORMAL EMERITA (NORMAL) 06/09/18 18:01 RBC Morph Micro Appear 1+ MACROCYTOSIS (NORMAL) 06/09/18 18:01 PT 13.2 secs (9.9-12.6) H 06/09/18 22:03 INR 1.2 (0.8-1.2) 06/09/18 22:03 APTT 90.6 secs (24.9-33.3) H 06/09/18 22:03 D-Dimer 1005.5 ng/mL (200.0-255.0) H 06/09/18 18:01 Anti-Xa Level 0.7 U/mL (-0.7) 06/10/18 07:59 Sodium 128 mmol/L (135-145) L 06/10/18 08:53 Potassium 4.9 mmol/L (3.5-5.0) 06/10/18 08:53 Chloride 95 mmol/L (101-111) L 06/10/18 08:53 Carbon Dioxide 22 mmol/L (21-32) 06/10/18 08:53 Anion Gap 11.0 (6-13) 06/10/18 08:53 BUN 35 mg/dL (6-20) H 06/10/18 08:53 Creatinine 0.9 mg/dL (0.6-1.2) 06/10/18 08:53 Estimated GFR (MDRD) 83 (>89) L 06/10/18 08:53 Glucose 174 mg/dL (70-100) H 06/10/18 08:53 Lactic Acid 3.6 mmol/L (0.5-2.2) H* 06/10/18 12:32 Calcium 8.5 mg/dL (8.5-10.3) 06/10/18 08:53 Total Bilirubin 1.7 mg/dL (0.2-1.0) H 06/09/18 18:01 AST 75 IU/L (10-42) H 06/09/18 18:01 ALT 60 IU/L (10-60) 06/09/18 18:01 Alkaline Phosphatase 343 IU/L (42-121) H 06/09/18 18:01 Troponin I 0.06 ng/mL (<0.49) 06/10/18 11:23 Total Protein 6.1 g/dL (6.7-8.2) L 06/09/18 18:01 Albumin 3.4 g/dL (3.2-5.5) 06/09/18 18:01 Globulin 2.7 g/dL (2.1-4.2) 06/09/18 18:01 Albumin/Globulin Ratio 1.3 (1.0-2.2) 06/09/18 18:01 Lipase 26 U/L (22-51) 06/09/18 18:01 Urine Color YELLOW 06/09/18 23:25 Urine Clarity CLEAR (CLEAR) 06/09/18 23:25 Urine pH 5.5 PH (5.0-7.5) 06/09/18 23:25 Ur Specific [place] 1.020 (1.002-1.030) 06/09/18 23:25 Urine Protein 100 mg/dL (NEGATIVE) H 06/09/18 23:25 Urine Glucose (UA) 100 mg/dL (NEGATIVE) H 06/09/18 23:25 Urine Ketones NEGATIVE mg/dL (NEGATIVE) 06/09/18 23:25 Urine Occult Blood MODERATE (NEGATIVE) H 06/09/18 23:25 Urine Nitrite NEGATIVE (NEGATIVE) 06/09/18 23:25 Urine Bilirubin NEGATIVE (NEGATIVE) 06/09/18 23:25 Urine Urobilinogen 0.2 (NORMAL) E.U./dL (NORMAL) 06/09/18 23:25 Ur Leukocyte Esterase NEGATIVE (NEGATIVE) 06/09/18 23:25 Urine RBC None Seen /HPF (0-5) 06/09/18 23:25 Urine WBC 0-3 /HPF (0-3) 06/09/18 23:25 Ur Squamous Epith Cells NONE SEEN (<= Few) 06/09/18 23:25 Urine Bacteria None Seen /HPF (None Seen) 06/09/18 23:25 Ur Microscopic Review INDICATED 06/09/18 23:25 Urine Culture Comments NOT INDICATED 06/09/18 23:25 MRSA Surveill Initial NEGATIVE (NEGATIVE) 06/10/18 01:44 Sepsis Event Note (H) - Evaluation Current Stage of Sepsis: Ruled out
[2018-06-10] MEDS: METOPROLOL SUCCINATE 25 MG TABLET PO SCH ×2 (19:18→21:00)
[2018-06-10] MEDS: MIN OIL/DIMETHICON/COCONUT OIL 92 GM TUBE TOP PRN (19:18)
--- NOTE | 2018-06-10 19:40 | ADVANCE CARE PLANNING NOTE ---
Advance Care Planning - Date/Time Date: 06/10/18 Time: 16:00 - Purpose of encounter Text: To establish his wishes regarding aggressivem==ness of care, given the new diagnoses on this admission. - Parties in attendance Parties in attendance: I spoke to the patient in his room. - Decisional capacity Decisional capacity of: He has full decisional capacity. - Subjective/Patient's story Subjective/Patient's story: He was admitted with muktiple PEs after coming to the ER for marked weakness. He is upset that he didn't have a diet ordered after CT imaging was completed. He has no SOB, and has no complaints other than weakness. - Objective/Medical story Objective/Medical Story: Hx of metestatic prostate CA to bone, bone pain in lower back, had chemo therapy 1 week ago in a Clinical Trial, with Dr Sherie Serra. He is admitted for complaints of marked weakness and found to have new multiple PEs, new Aflutter with RVR, new thrombocytopenia and lactic acidosis unexplained. He is on anticoagulation and iv fluids as well as iv Diltiazem for heart rate control plus oral B-blockers. - Goals of Care Goals of care determinations: He wants everything done for medical management. Due to multiple serious problems I offered to have him transferred to [place], if he is accepted. He declined to be transferred. - Plan Plan: Will not plan transfer today, continue aggressive management of the new pulmonary emboli, new Aflutter with rapid ventr. rate, hydrate for the elevated lactic acid level and monitor the CBC due to the low platelets. - Code Status Code Status: Attempt Resuscitation - Time Spent on Advance Care Planning Time spent on advance care plannin
[2018-06-10] MEDS ORDERED: LORazepam 2 MG/ML VIAL IVP PRN (20:37)
[2018-06-10] MEDS ORDERED: DIGOXIN 500 MCG/2 ML AMP IVP SCH (21:00)
[2018-06-10] MEDS: DEXAMETHASONE 4 MG TABLET PO SCH (21:17)
[2018-06-10] MEDS ORDERED: DIGOXIN 500 MCG/2 ML AMP IVP ONE (21:17)
[2018-06-10] MEDS ORDERED: HALOPERIDOL 5 MG/ML VIAL IM ONE (22:49)
[2018-06-10] MEDS ORDERED: HALOPERIDOL 5 MG/ML VIAL ONE (23:23)
--- NOTE | 2018-06-10 23:58 | Ultrasound Report ---
Reason: DYSPNEA,PE, ASSESS FOR DVT Procedure Date: 06/10/2018 Accession Number: [id number] / [id number] Procedure: US - Duplex Ext Veins Right CPT Code: FULL RESULT: EXAM: RIGHT LOWER EXTREMITY VENOUS ULTRASOUND EXAM DATE: 06/10/2018 02:33 PM. CLINICAL HISTORY: DYSPNEA,PE, ASSESS FOR DVT. COMPARISON: None. TECHNIQUE: Real-time sonographic vascular imaging was performed by the batting machine operator insulation through the lower extremity utilizing both color-flow and Doppler spectral analysis. Multiple sales solutions representative static images were saved for review. FINDINGS: Common Femoral Vein (CFV): Normal. CFV-GSV Junction: Normal. Profunda Femoral Vein (PFV): Normal. Femoral Vein (FV) Prox: Normal. Femoral Vein (FV) Mid: Normal. Femoral Vein (FV) Dist: Normal. Popliteal Vein: Normal. Posterior Tibial Veins: Normal. Peroneal Veins: Normal. Other: None. IMPRESSION: No evidence for deep venous thrombosis. RADIA
[2018-06-11] MEDS: MORPHINE ER 15 MG TABLET PO PRN ×2 (03:38→19:41)
[2018-06-11] MEDS: oxyCODONE 5 MG TABLET PO PRN ×3 (03:38→20:29)
[2018-06-11] MEDS ORDERED: DIGOXIN 500 MCG/2 ML AMP IVP SCH (05:00)
[2018-06-11] MEDS: SODIUM CHLORIDE FLUSH 0.9% 10 ML SYRINGE IVP SCH ×4 (05:05→22:43)
[2018-06-11] MEDS: SODIUM CHLORIDE 0.9% 1,000 ML IV SCH ×4 (05:13→20:30)
[2018-06-11] MEDS: PANTOPRAZOLE 40 MG TABLET PO SCH (06:58)
[2018-06-11] MEDS ORDERED: IOVERSOL 320 100 ML VIAL IVP ONE ×2 (08:03→08:41)
[2018-06-11] MEDS ORDERED: LORazepam 2 MG/ML VIAL IVP PRN ×3 (08:42→22:26)
[2018-06-11] MEDS: DEXAMETHASONE 4 MG TABLET PO SCH ×2 (08:49→20:30)
[2018-06-11] MEDS: METOPROLOL SUCCINATE 25 MG TABLET PO SCH ×2 (08:49→17:41)
[2018-06-11] MEDS: POLYETHYLENE GLYCOL 3350 17 GM PACKET PO SCH (08:50)
--- NOTE | 2018-06-11 08:52 | CT Report ---
Reason: change in mentation Procedure Date: 06/11/2018 Accession Number: [id number] / [id number] Procedure: CT - Head W/WO CPT Code: FULL RESULT: EXAM: CT HEAD EXAM DATE: 06/11/2018 08:37 AM. CLINICAL HISTORY: Change in mentation. Metastatic prostate cancer. COMPARISON: ABDOMEN/PELVIS W/ 06/10/2018 1:16 AM CHEST ANGIO 06/09/2018 6:56 PM. TECHNIQUE: Multiaxial CT images were obtained from the foramen magnum to the vertex. Reformats: Sagittal and coronal. IV contrast: 80 cc Optiray 320. In accordance with CT protocol optimization, one or more of the following dose reduction techniques were utilized for this exam: automated exposure control, adjustment of mA and/or KV based on patient size, or use of iterative reconstructive technique. FINDINGS: Parenchyma: No intraparenchymal hemorrhage. No evidence of mass, midline shift, or CT findings of infarction. No abnormal enhancement. Cates-white differentiation is distinct. Extraaxial Spaces: Normal for age. No subdural or epidural collections identified. Ventricles: Normal in size and position. Sinuses and Orbits: Imaged paranasal sinuses, orbits, and mastoids show no significant abnormality. Bones: No fracture. There are a few small scattered sclerotic foci particularly in the left frontal bone, left parietal bone, right orbital roof, and right greater sphenoid wing. Other: 1.7 x 0.7 cm subcutaneous mildly heterogeneous hyperdense circumscribed nodule in the right occipital area consistent with a sebaceous cyst. Moderate calcification in bilateral cavernous internal carotid arteries and intracranial bilateral vertebral arteries. IMPRESSION: 1. No evidence of brain metastasis. 2. No current CT evidence of acute CVA. No intracranial hemorrhage. 3. Small scattered sclerotic calvarial metastases. RADIA
[2018-06-11] MEDS ORDERED: APIXABAN 5 MG TABLET PO SCH (09:00)
--- NOTE | 2018-06-11 09:09 | PROVIDER PROGRESS NOTE ---
Assessment/Plan - Problem List (1) Acute alteration in mental status Assessment/Plan: Overnight he became agitated, pulled out iv, was not cooperative. Restraints and Haldol once and prn Ativan were ordered. Will obtain head CT to evaluate for structural change, especially brain mets. Will order a CIWA protocol and prn iv Ativan q1h, in case his new confusion is due to alcohol withdrawal, since he is here 72 hours, when withdrawal could start. He denied alcohol intake in ER or to admitting [employer], but may have withheld information. Today the sin and [id number] told me that he can be "grumpy and obstinate", but not confused or agitated usually. Possibly he is having "Sun downing". The low serum sodium may also be contributing to confusion. Continue ICU care with close monitoring. (2) Pulmonary emboli Assessment/Plan: No significant pulmonary problems and Echo did not show cor pulmonale. He had Dopplers ordered to eval for DVT and was only able to cooperate with venous Dopplers of one leg, due to agitation. His CHADS score = 3 (HTN, stroke hx) regarding his Afib, therefore will transition iv heparin drip to po Eliquis. (3) Atrial flutter with rapid ventricular response Assessment/Plan: HR was elevated overnight (possibly exacrbated by his agitation) and he received several Dig iv doses. HR is still intermittently 140-150. Will increase his B-jian dose. Check a Dig level in am tomorrow to possibly use po Dig in the future. When his rate is better controlled will also transition iv Cardizem drip to po Cardizem CD. His CHADS score = 3 (HTN, stroke hx), and he needs anticoagulation for his PEs, therefore will transition iv heparin drip to po Eliquis today. (4) Thrombocytopenia due to drugs Assessment/Plan: Plt count dropped to 49. No signs of bleeding. Will stop heparin and start PE doses of Eliquis. (5) Prostate cancer metastatic to bone Assessment/Plan: I discussed the option of transfer to [facility], associated with his outpatient [facility], after I spoke to the RN yesterday that knows his case. He declined being transferred yesterday. I will repeat the offer today. (6) Lactic acidosis Assessment/Plan: This slowly improved with iv hydration, no empiric antibiotics were started, etiology is unclear. (7) Hyponatremia Assessment/Plan: Possibly from iv fluids since his Diltiazem drip is in D5 and his Heparin drip is inD5 but he also gets iv NS at 150 c/hr. His I's and O's are unreliable because he refused a Robertson and does have some urinary incontinence. The low serum sodium may also be contributing to confusion. Monitor BMP daily. - Current Meds Current Meds: Current Medications Generic Name Dose Route Start Last Admin Trade Name Freq PRN Reason Stop Dose Admin Apixaban 5 mg 06/11/18 09:00 06/11/18 08:49 Eliquis PO 5 mg BID GERRI Administration Dexamethasone 8 mg 06/10/18 21:00 06/11/18 08:49 Decadron PO 8 mg BID GERRI Administration Sodium Chloride 1,000 mls @ 150 mls/hr 06/09/18 23:14 06/11/18 07:35 Normal Saline 0.9% IV 150 mls/hr .Q6H40M GERRI Infusion Diltiazem HCl 125 mg/ Dextrose 125 mls @ 5 mls/hr 06/10/18 01:00 06/11/18 07:35 IV 15 mg/hr .Q25H GERRI 15 mls/hr Titration Protocol 5 MG/HR Prochlorperazine Edisylate 10 52 mls @ 200 mls/hr 06/10/18 13:25 06/10/18 15:52 mg/ Sodium Chloride IV Infused Q6H PRN Infusion Nausea / Vomiting Metoprolol Succinate 25 mg 06/10/18 19:00 06/11/18 08:49 Toprol Xl PO 25 mg BID GERRI Administration Mineral Oil 1 applic 06/10/18 16:21 06/10/18 19:18 Cavilon TOP 1 applic PRN PRN Administration Skin Care Morphine Sulfate 15 mg 06/10/18 12:51 06/11/18 03:38 PO 15 mg BID PRN Administration PAIN Oxycodone HCl 5 mg 06/09/18 21:16 06/11/18 03:38 Roxicodone PO 5 mg Q6H PRN Administration PAIN Pantoprazole Sodium 40 mg 06/10/18 07:00 06/11/18 06:58 Protonix PO 40 mg QDAC GERRI Administration Polyethylene Glycol 17 gm 06/10/18 09:00 06/11/18 08:50 Miralax PO 17 gm DAILY GERRI Administration Sodium Chloride 10 ml 06/10/18 01:00 06/11/18 05:05 Normal Saline Flush 0.9% IVP Not Given 0100,0900,1700 GERRI - Lab Result Fish Bone Diagrams: 06/11/18 09:05 06/11/18 09:05 - Additional Planning My Orders: My Active Orders 06/10/18 12:51 Morphine ER 15 mg PO BID PRN 06/10/18 13:25 Prochlorperazine Inj [Compazine Inj] 10 mg Sodium Chloride 0.9% [Normal Saline 0.9%] 50 ml IV Q6H 06/10/18 19:00 Metoprolol Succinate [Toprol Xl] 25 mg PO BID 06/10/18 21:00 Dexamethasone [Decadron] 8 mg PO BID 06/10/18 Lunch DIET [Regular Diet] [DIET] 06/11/18 08:25 CIWA-Ar Score Assessment (IV) [RC] PRN 06/11/18 08:42 Straight Catheter Insertion [RC] PRN LORazepam INJ [Ativan Inj (Vial)] 1 mg IVP Q1H PRN 06/11/18 08:43 Blood Glucose POC [RC] Routine CIWA - AR Score Card [RC] Routine Routine Neuro Check [RC] Routine Routine CBC - COMP BLD CT W/AUTO DIFF [HEME] Routine 06/11/18 09:00 Apixaban [Eliquis] 5 mg PO BID 06/12/18 05:00 BMP - BASIC METABOLIC PANEL [CHEM] DAILYLAB CBC - COMP BLD CT W/AUTO DIFF [HEME] DAILYLAB 06/13/18 05:00 BMP - BASIC METABOLIC PANEL [CHEM] DAILYLAB CBC - COMP BLD CT W/AUTO DIFF [HEME] DAILYLAB Objective Vital Signs: Vital Signs - 24 hr 06/10/18 06/10/18 06/10/18 10:00 11:00 11:47 Temperature Heart Rate Heart Rate [ 81 79 Brachial] Respiratory 11 L Rate Blood Pressure Blood Pressure 118/62 134/65 H [Right Brachial artery] O2 Saturation 97 100 06/10/18 06/10/18 06/10/18 12:00 13:00 14:00 Temperature 37 C Heart Rate Heart Rate [ 75 77 76 Brachial] Respiratory 11 L 11 L 11 L Rate Blood Pressure Blood Pressure 110/67 127/73 138/66 H [Right Brachial artery] O2 Saturation 99 98 98 06/10/18 06/10/18 06/10/18 15:00 15:26 15:28 Temperature Heart Rate Heart Rate [ 81 145 H 120 H Brachial] Respiratory 12 Rate Blood Pressure Blood Pressure 131/65 H 158/102 H [Right Brachial artery] O2 Saturation 97 06/10/18 06/10/18 06/10/18 15:59 17:00 18:00 Temperature 37 C Heart Rate Heart Rate [ 77 141 H 155 H Brachial] Respiratory 21 11 L 14 Rate Blood Pressure Blood Pressure 108/64 171/72 H 126/94 H [Right Brachial artery] O2 Saturation 97 92 92 06/10/18 06/10/18 06/10/18 19:00 20:00 21:00 Temperature 37.0 C Heart Rate Heart Rate [ 95 110 H 108 H Brachial] Respiratory 18 18 18 Rate Blood Pressure Blood Pressure 126/94 H 114/65 118/91 H [Right Brachial artery] O2 Saturation 95 96 96 06/10/18 06/10/18 06/10/18 21:19 22:00 23:00 Temperature Heart Rate 153 H Heart Rate [ 152 H 119 H Brachial] Respiratory 16 9 L Rate Blood Pressure Blood Pressure 101/61 126/77 [Right Brachial artery] O2 Saturation 94 96 06/10/18 06/11/18 06/11/18 23:46 00:00 01:00 Temperature 36.1 C L Heart Rate Heart Rate [ 148 H 116 H Brachial] Respiratory 20 16 Rate Blood Pressure 126/77 Blood Pressure 121/83 H 142/89 H [Right Brachial artery] O2 Saturation 97 06/11/18 06/11/18 06/11/18 02:00 03:00 04:00 Temperature Heart Rate Heart Rate [ 128 H 100 97 Brachial] Respiratory 15 24 15 Rate Blood Pressure Blood Pressure 152/67 H 142/83 H 128/73 [Right Brachial artery] O2 Saturation 95 96 98 06/11/18 06/11/18 06/11/18 05:00 06:00 07:00 Temperature Heart Rate Heart Rate [ 111 H 78 100 Brachial] Respiratory 13 15 14 Rate Blood Pressure Blood Pressure 127/78 115/77 143/79 H [Right Brachial artery] O2 Saturation 95 93 97 06/11/18 08:00 Temperature 35.9 C L Heart Rate Heart Rate [ 149 H Brachial] Respiratory 14 Rate Blood Pressure Blood Pressure 148/126 H [Right Brachial artery] O2 Saturation 99 Oxygen O2 Source Room air I&O (Last 24 Hrs): Intake and Output Totals x24h 06/09/18 06/10/18 06/11/18 23:59 23:59 23:59 Intake Total 2233.667 4847.386 1519.932 Output Total 913 Balance 2233.667 3934.386 1519.932 General: Oriented x3, Other (Lethargic, buta nswers appropriately.) HEENT: Mucous membr. moist/pink, Other (Pale) Neck: Supple, No JVD Neuro: Non Focal Cardiovascular: Regular rate, No murmurs, Other (Telemetry killian shows underlying Aflutter) Respiratory: Breath sounds nml Abdomen: Soft, Other (Obese) Extremities: No edema - Results Results: Laboratory Results WBC 5.3 x10^3/uL (4.8-10.8) 06/10/18 11:23 RBC 4.26 10^6/uL (4.70-6.10) L 06/10/18 11:23 Hgb 13.8 g/dL (14.0-18.0) L 06/10/18 11:23 Hct 40.0 % (42.0-52.0) L 06/10/18 11:23 MCV 94.0 fL (80.0-94.0) 06/10/18 11:23 MCH 32.4 pg (27.0-31.0) H 06/10/18 11:23 MCHC 34.5 g/dL (32.0-36.0) 06/10/18 11:23 RDW 17.7 % (12.0-15.0) H 06/10/18 11:23 Plt Count 56 10^3/uL (130-450) L 06/10/18 11:23 MPV 9.2 fL (7.4-11.4) 06/10/18 11:23 Neut # (Auto) Not Reportable 06/10/18 11:23 Lymph # (Auto) Not Reportable 06/10/18 11:23 [place] # (Auto) Not Reportable 06/10/18 11:23 Eos # (Auto) Not Reportable 06/10/18 11:23 Baso # (Auto) Not Reportable 06/10/18 11:23 Absolute Nucleated RBC Not Reportable 06/10/18 11:23 Total Counted 100 06/10/18 11:23 Band Neuts % (Manual) 9 % (0-10) 06/10/18 11:23 Abnorm Lymph % (Manual) 0 % 06/10/18 11:23 Nucleated RBC % Not Reportable 06/10/18 11:23 Neutrophils # (Manual) 5.1 10^3/uL (1.5-6.6) 06/10/18 11:23 Lymphocytes # (Manual) 0.2 10^3/uL (1.5-3.5) L 06/10/18 11:23 Monocytes # (Manual) 0.0 10^3/uL (0.0-1.0) 06/10/18 11:23 Eosinophils # (Manual) 0.0 10^3/uL (0-0.7) 06/10/18 11:23 Basophils # (Manual) 0.0 10^3/uL (0-0.1) 06/10/18 11:23 Differential Comment MANUAL DIFFERENTIAL 06/10/18 11:23 Manual Slide Review Indicated 06/09/18 18:01 WBC Morphology PELGER HUET ANOMALY (NORMAL) 2+ VACUOLATION (NORMAL) 06/10/18 11:23 WBC Morphology PELGER HUET ANOMALY (NORMAL) 2+ VACUOLATION (NORMAL) 06/10/18 11:23 Platelet Estimate DECREASED (<130,000) (NORMAL) 06/09/18 18:01 Platelet Morphology NORMAL EMERITA (NORMAL) 06/09/18 18:01 RBC Morph Micro Appear 1+ MACROCYTOSIS (NORMAL) 06/09/18 18:01 PT 13.2 secs (9.9-12.6) H 06/09/18 22:03 INR 1.2 (0.8-1.2) 06/09/18 22:03 APTT 90.6 secs (24.9-33.3) H 06/09/18 22:03 D-Dimer 1005.5 ng/mL (200.0-255.0) H 06/09/18 18:01 Anti-Xa Level 0.7 U/mL (-0.7) 06/10/18 07:59 Sodium 128 mmol/L (135-145) L 06/10/18 08:53 Potassium 4.9 mmol/L (3.5-5.0) 06/10/18 08:53 Chloride 95 mmol/L (101-111) L 06/10/18 08:53 Carbon Dioxide 22 mmol/L (21-32) 06/10/18 08:53 Anion Gap 11.0 (6-13) 06/10/18 08:53 BUN 35 mg/dL (6-20) H 06/10/18 08:53 Creatinine 0.9 mg/dL (0.6-1.2) 06/10/18 08:53 Estimated GFR (MDRD) 83 (>89) L 06/10/18 08:53 Glucose 174 mg/dL (70-100) H 06/10/18 08:53 Lactic Acid 3.6 mmol/L (0.5-2.2) H* 06/10/18 12:32 Calcium 8.5 mg/dL (8.5-10.3) 06/10/18 08:53 Total Bilirubin 1.7 mg/dL (0.2-1.0) H 06/09/18 18:01 AST 75 IU/L (10-42) H 06/09/18 18:01 ALT 60 IU/L (10-60) 06/09/18 18:01 Alkaline Phosphatase 343 IU/L (42-121) H 06/09/18 18:01 Troponin I 0.06 ng/mL (<0.49) 06/10/18 11:23 Total Protein 6.1 g/dL (6.7-8.2) L 06/09/18 18:01 Albumin 3.4 g/dL (3.2-5.5) 06/09/18 18:01 Globulin 2.7 g/dL (2.1-4.2) 06/09/18 18:01 Albumin/Globulin Ratio 1.3 (1.0-2.2) 06/09/18 18:01 Lipase 26 U/L (22-51) 06/09/18 18:01 Urine Color YELLOW 06/09/18 23:25 Urine Clarity CLEAR (CLEAR) 06/09/18 23:25 Urine pH 5.5 PH (5.0-7.5) 06/09/18 23:25 Ur Specific [place] 1.020 (1.002-1.030) 06/09/18 23:25 Urine Protein 100 mg/dL (NEGATIVE) H 06/09/18 23:25 Urine Glucose (UA) 100 mg/dL (NEGATIVE) H 06/09/18 23:25 Urine Ketones NEGATIVE mg/dL (NEGATIVE) 06/09/18 23:25 Urine Occult Blood MODERATE (NEGATIVE) H 06/09/18 23:25 Urine Nitrite NEGATIVE (NEGATIVE) 06/09/18 23: Urine Bilirubin NEGATIVE (NEGATIVE) 06/09/18 23:25 Urine Urobilinogen 0.2 (NORMAL) E.U./dL (NORMAL) 06/09/18 23:25 Ur Leukocyte Esterase NEGATIVE (NEGATIVE) 06/09/18 23:25 Urine RBC None Seen /HPF (0-5) 06/09/18 23:25 Urine WBC 0-3 /HPF (0-3) 06/09/18 23:25 Ur Squamous Epith Cells NONE SEEN (<= Few) 06/09/18 23:25 Urine Bacteria None Seen /HPF (None Seen) 06/09/18 23:25 Ur Microscopic Review INDICATED 06/09/18 23:25 Urine Culture Comments NOT INDICATED 06/09/18 23: MRSA Surveill Initial NEGATIVE (NEGATIVE) 06/10/18 01:44 Sepsis Event Note (H) - Evaluation Current Stage of Sepsis: Ruled out
[2018-06-11 09:23] LABS: BASOPHILS % (AUTO) 0.3 %; EOSINOPHILS % (AUTO) 2.6 %; HGB - HEMOGLOBIN 12.4 g/dL (14.0-18.0); LYMPHOCYTES % (AUTO) 6.7 %; MEAN CORPUSCULAR HEMOGLOBIN 32.3 pg (27.0-31.0); MEAN CORPUSCULAR HGB CONC 34.4 g/dL (32.0-36.0); MEAN CORPUSCULAR VOLUME 93.9 fL (80.0-94.0); MEAN PLATELET VOLUME 8.5 fL (7.4-11.4); MONOCYTES % (AUTO) 8.5 %; NEUTROPHILS % (AUTO) 81.9 %; PLT - PLATELET COUNT 49 10^3/uL (130-450); RED BLOOD COUNT 3.85 10^6/uL (4.70-6.10); RED CELL DISTRIBUTION WIDTH 16.8 % (12.0-15.0); WHITE BLOOD COUNT 3.5 x10^3/uL (4.8-10.8)
[2018-06-11 09:26] LABS: CREATININE 0.7 mg/dL (0.6-1.2)
[2018-06-11 09:34] LABS: ABNORMAL LYMPHS % (MANUAL) 0 %
[2018-06-11] MEDS: HEPARIN 25000UNITS/500ML (D5W) 25,000 UNIT/500 ML BAG IV SCH (09:44)
[2018-06-11] MEDS: diltiaZEM INJ 125 MG in DEXTROSE 5% 100 ML IV SCH ×2 (09:45→18:45)
[2018-06-11 09:47] LABS: BAND NEUTROPHILS % (MANUAL) 6 %; LYMPHOCYTES # (MANUAL) 0.2 10^3/uL (1.5-3.5); LYMPHOCYTES % (MANUAL) 7 %; METAMYELOCYTES % (MANUAL) 1 %; MONOCYTES # (MANUAL) 0.6 10^3/uL (0.0-1.0); NEUTROPHILS # (MANUAL) 2.7 10^3/uL (1.5-6.6); NEUTROPHILS % (MANUAL) 70 %
[2018-06-11 09:48] LABS: PLATELET MORPHOLOGY NORMAL APPEARANCE (NORMAL); RBC MORPHOLOGY (MULTIPLE) NORMAL APPEARANCE (NORMAL)
[2018-06-11 09:49] LABS: PLATELET ESTIMATE, MANUAL DECREASED (<130,000) (NORMAL)
[2018-06-11 10:01] LABS: DIFFERENTIAL COMMENT MANUAL DIFFERENTIAL
[2018-06-11 13:20] LABS: CALCIUM 8.2 mg/dL (8.5-10.3)
[2018-06-11 13:38] LABS: BILIRUBIN,DIRECT 0.4 mg/dL (0.1-0.5); BILIRUBIN,TOTAL 1.1 mg/dL (0.2-1.0); TOTAL PROTEIN 5.3 g/dL (6.7-8.2)
[2018-06-11] MEDS ORDERED: APIXABAN 5 MG TABLET PO ONE (13:43)
[2018-06-11] MEDS: INSULIN ASPART 300 UNIT/3 ML PEN SUBQ SCH ×2 (17:39→20:34)
[2018-06-11] MEDS: APIXABAN 5 MG TABLET PO SCH (20:29)
[2018-06-12] MEDS: oxyCODONE 5 MG TABLET PO PRN (01:42)
[2018-06-12] MEDS: SODIUM CHLORIDE 0.9% 1,000 ML IV SCH ×3 (02:49→17:30)
[2018-06-12] MEDS: diltiaZEM INJ 125 MG in DEXTROSE 5% 100 ML IV SCH (02:50)
[2018-06-12 05:45] LABS: CALCIUM 8.3 mg/dL (8.5-10.3); CREATININE 0.6 mg/dL (0.6-1.2)
[2018-06-12 05:51] LABS: DIGOXIN 0.4 ng/mL
[2018-06-12 06:03] LABS: HB2 TOTAL 12.2 g/dL; HEMOGLOBIN A1C 0.61 g/dL; HEMOGLOBIN A1C % 6.7 % (4.6-6.2)
[2018-06-12 06:11] LABS: BASOPHILS % (AUTO) 0.2 %; EOSINOPHILS % (AUTO) 1.3 %; HGB - HEMOGLOBIN 12.2 g/dL (14.0-18.0); LYMPHOCYTES % (AUTO) 6.3 %; MEAN CORPUSCULAR HEMOGLOBIN 32.6 pg (27.0-31.0); MEAN CORPUSCULAR HGB CONC 33.8 g/dL (32.0-36.0); MEAN CORPUSCULAR VOLUME 96.3 fL (80.0-94.0); MEAN PLATELET VOLUME 10.1 fL (7.4-11.4); MONOCYTES % (AUTO) 1.5 %; NEUTROPHILS % (AUTO) 90.7 %; PLT - PLATELET COUNT 61 10^3/uL (130-450); RED BLOOD COUNT 3.73 10^6/uL (4.70-6.10); RED CELL DISTRIBUTION WIDTH 17.5 % (12.0-15.0); WHITE BLOOD COUNT 9.3 x10^3/uL (4.8-10.8)
[2018-06-12] MEDS: PANTOPRAZOLE 40 MG TABLET PO SCH (06:44)
[2018-06-12 06:45] LABS: ABNORMAL LYMPHS % (MANUAL) 2 %; BAND NEUTROPHILS % (MANUAL) 21 %; LYMPHOCYTES # (MANUAL) 0.8 10^3/uL (1.5-3.5); LYMPHOCYTES % (MANUAL) 7 %; METAMYELOCYTES % (MANUAL) 3 %; MONOCYTES # (MANUAL) 0.7 10^3/uL (0.0-1.0); MYELOCYTES % (MANUAL) 2 %; NEUTROPHILS # (MANUAL) 7.3 10^3/uL (1.5-6.6); NEUTROPHILS % (MANUAL) 58 %
[2018-06-12 06:46] LABS: PLATELET ESTIMATE, MANUAL DECREASED (<130,000) (NORMAL)
[2018-06-12] MEDS: INSULIN ASPART 300 UNIT/3 ML PEN SUBQ SCH ×4 (08:14→21:25)
[2018-06-12] MEDS: MIN OIL/DIMETHICON/COCONUT OIL 92 GM TUBE TOP PRN (08:17)
[2018-06-12] MEDS: METOPROLOL SUCCINATE 25 MG TABLET PO SCH ×2 (08:43→19:53)
[2018-06-12] MEDS: APIXABAN 5 MG TABLET PO SCH ×2 (08:43→21:25)
[2018-06-12] MEDS: DEXAMETHASONE 4 MG TABLET PO SCH ×2 (08:43→21:24)
[2018-06-12 09:21] LABS: CALCIUM 8.2 mg/dL (8.5-10.3); CREATININE 0.6 mg/dL (0.6-1.2)
[2018-06-12 09:49] LABS: BASOPHILS % (AUTO) 0.1 %; EOSINOPHILS % (AUTO) 0.3 %; HGB - HEMOGLOBIN 11.7 g/dL (14.0-18.0); LYMPHOCYTES % (AUTO) 4.9 %; MEAN CORPUSCULAR HEMOGLOBIN 32.7 pg (27.0-31.0); MEAN CORPUSCULAR HGB CONC 36.4 g/dL (32.0-36.0); MEAN PLATELET VOLUME 8.8 fL (7.4-11.4); NEUTROPHILS % (AUTO) 90.7 %; PLT - PLATELET COUNT 52 10^3/uL (130-450); RED BLOOD COUNT 3.56 10^6/uL (4.70-6.10); RED CELL DISTRIBUTION WIDTH 16.9 % (12.0-15.0); WHITE BLOOD COUNT 8.9 x10^3/uL (4.8-10.8)
[2018-06-12] MEDS: SODIUM CHLORIDE FLUSH 0.9% 10 ML SYRINGE IVP SCH ×2 (10:24→21:18)
[2018-06-12 11:26] LABS: ABNORMAL LYMPHS % (MANUAL) 4 %; BAND NEUTROPHILS % (MANUAL) 9 %; LYMPHOCYTES # (MANUAL) 1.2 10^3/uL (1.5-3.5); LYMPHOCYTES % (MANUAL) 9 %; MONOCYTES # (MANUAL) 0.8 10^3/uL (0.0-1.0); NEUTROPHILS # (MANUAL) 6.6 10^3/uL (1.5-6.6); NEUTROPHILS % (MANUAL) 65 %
[2018-06-12 11:31] LABS: PLATELET ESTIMATE, MANUAL DECREASED (<130,000) (NORMAL); PLATELET MORPHOLOGY NORMAL APPEARANCE (NORMAL); RBC MORPHOLOGY (MULTIPLE) 1+ ANISOCYTOSIS (NORMAL)
[2018-06-12 11:32] LABS: DIFFERENTIAL COMMENT MANUAL DIFFERENTIAL
[2018-06-12 12:27] LABS: OTHER CELLS % (MANUAL) 4 %
--- NOTE | 2018-06-12 14:18 | PROVIDER PROGRESS NOTE ---
Assessment/Plan - Problem List (1) Acute alteration in mental status Assessment/Plan: He probably Sundowned 2 nights ago and last night was better, today he is fatigued and lethargic. Yesterday's CT head showed no acute findings and he has no focal neurologic findings except intermittent confusion. (2) Atrial flutter with rapid ventricular response Assessment/Plan: HR is now mostly controlled. Will change his iv Cardizem going at 10 mg/hr to po Cardizem. Eliquis was started yesterday. (3) Thrombocytopenia due to drugs Assessment/Plan: Plt count slightly better today. I spoke to his D.I.L. and updated her. Monitor CBC daily. (4) Hyponatremia Assessment/Plan: He is 11 L (+) since admission, likely from ghis iv hydration. Will start daily Lasix iv. Monitor I's and O's as best as possible (he refused a Robertson). Monitor BMP daily. (5) Volume overload Assessment/Plan: Will start daily Lasix iv. Monitor I's and O's as best as possible (he refused a Robertson). Monitor BMP daily. (6) Pulmonary emboli Assessment/Plan: Continue PE-doses of Eliquis, 7 days, then decrease as per guidelines. (7) Prostate cancer metastatic to bone Assessment/Plan: The patient received chemo in a Clinical Trial a week ago. see presvious days notes. (8) Chemotherapy adverse reaction Qualifiers: Encounter type: subsequent encounter Qualified Code(s): T45.1X5D - Adverse effect of antineoplastic and immunosuppressive drugs, subsequent encounter Assessment/Plan: I spoke to Oncologist at yesterday who did not feel he needed transfer there for thrombocytopenia and his other new diagnoses, unless he worsens. - Current Meds Current Meds: Current Medications Generic Name Dose Route Start Last Admin Trade Name Freq PRN Reason Stop Dose Admin Apixaban 10 mg 06/11/18 21:00 06/12/18 08:43 Eliquis PO 10 mg BID GERRI Administration Dexamethasone 8 mg 06/10/18 21:00 06/12/18 08:43 Decadron PO 8 mg BID GERRI Administration Diltiazem HCl 60 mg 06/12/18 09:00 06/12/18 08:42 Cardizem PO 60 mg Q8H GERRI Administration Sodium Chloride 1,000 mls @ 150 mls/hr 06/09/18 23:14 06/12/18 09:59 Normal Saline 0.9% IV 150 mls/hr .Q6H40M GERRI Administration Prochlorperazine Edisylate 10 52 mls @ 200 mls/hr 06/10/18 13:25 06/10/18 15:52 mg/ Sodium Chloride IV Infused Q6H PRN Infusion Nausea / Vomiting Insulin Aspart 1 - 9 unit 06/12/18 12:00 06/12/18 12:23 Novolog SUBQ 2 unit 0800,1200,1700,2100 GERRI Administration Protocol Lorazepam 1 mg 06/11/18 08:42 06/11/18 22:42 Ativan Inj (Vial) IVP 1 mg Q1H PRN Administration CIWA >8 Protocol Metoprolol Succinate 50 mg 06/11/18 18:00 06/12/18 08:43 Toprol Xl PO 50 mg 0900,1800 GERRI Administration Mineral Oil 1 applic 06/10/18 16:21 06/12/18 08:17 Cavilon TOP 1 applic PRN PRN Administration Skin Care Morphine Sulfate 15 mg 06/10/18 12:51 06/11/18 19:41 PO 15 mg BID PRN Administration PAIN Oxycodone HCl 5 mg 06/09/18 21:16 06/12/18 01:42 Roxicodone PO 5 mg Q6H PRN Administration PAIN Pantoprazole Sodium 40 mg 06/10/18 07:00 06/12/18 06:44 Protonix PO 40 mg QDAC GERRI Administration Polyethylene Glycol 17 gm 06/10/18 09:00 06/11/18 08:50 Miralax PO 17 gm DAILY GERRI Administration Sodium Chloride 10 ml 06/10/18 01:00 06/12/18 10:24 Normal Saline Flush 0.9% IVP 10 ml 0100,0900,1700 GERRI Administration - Lab Result Fish Bone Diagrams: 06/12/18 09:09 06/12/18 09:09 - Additional Planning My Orders: My Active Orders 06/11/18 17:00 Accucheck [Blood Glucose POC] [RC] 0800,1200,1700,2100 Initiate Hypoglycemia Protocol [RC] .protocol 06/11/18 18:00 Metoprolol Succinate [Toprol Xl] 50 mg PO 0900,1800 06/11/18 21:00 Apixaban [Eliquis] 10 mg PO BID 06/11/18 Dinner DIET [Soft Mechanical Diet] [DIET] 06/12/18 Evaluate and Treat PT [PT] Routine 06/12/18 09:00 diltiaZEM [Cardizem] 60 mg PO Q8H 06/12/18 10:49 Blood Glucose Checks - Eating [RC] 0800,1200,1700,2100 06/12/18 12:00 Insulin Aspart [NovoLOG] 1 - 9 unit SUBQ 0800,1200,1700,2100 06/12/18 12:08 Restraints Safety Check [RC] Q1H Restraints [RC] Q4H 06/12/18 13:56 FUROSEMIDE INJ 20mg VIAL [LASIX INJ 20mg VIAL] 20 mg IVP DAILY 06/13/18 05:00 BMP - BASIC METABOLIC PANEL [CHEM] DAILYLAB CBC - COMP BLD CT W/AUTO DIFF [HEME] DAILYLAB Subjective - Subjective Patient Reports: Fatigue Nursing Reports: Other (Slept over night, ate being fed, then got confused and pulled out iv.) Objective Vital Signs: Vital Signs - 24 hr 06/11/18 06/11/18 06/11/18 15:00 16:00 17:00 Temperature 36.1 C L Heart Rate [ 90 78 78 Brachial] Respiratory 12 14 15 Rate Blood Pressure Blood Pressure 160/97 H 145/63 H [Left Brachial artery] Blood Pressure 150/63 H [Right Brachial artery] O2 Saturation 96 96 06/11/18 06/11/18 06/11/18 18:00 19:00 20:00 Temperature 36.6 C Heart Rate [ 78 78 78 Brachial] Respiratory 13 16 16 Rate Blood Pressure Blood Pressure 156/59 H 165/68 H 136/66 H [Left Brachial artery] Blood Pressure [Right Brachial artery] O2 Saturation 95 96 06/11/18 06/11/18 06/11/18 21:00 22:00 23:00 Temperature Heart Rate [ 79 78 78 Brachial] Respiratory 14 15 16 Rate Blood Pressure Blood Pressure 132/44 H 137/64 H 138/86 H [Left Brachial artery] Blood Pressure [Right Brachial artery] O2 Saturation 96 06/12/18 06/12/18 06/12/18 00:00 01:00 02:00 Temperature 37 C Heart Rate [ 78 76 74 Brachial] Respiratory 20 15 18 Rate Blood Pressure Blood Pressure 162/66 H 156/64 H 160/67 H [Left Brachial artery] Blood Pressure [Right Brachial artery] O2 Saturation 97 96 06/12/18 06/12/18 06/12/18 03:00 03:07 04:00 Temperature 37 C Heart Rate [ 75 76 88 Brachial] Respiratory 15 19 15 Rate Blood Pressure Blood Pressure 151/60 H 140/58 H 154/74 H [Left Brachial artery] Blood Pressure [Right Brachial artery] O2 Saturation 96 96 06/12/18 06/12/18 06/12/18 05:00 06:00 07:00 Temperature Heart Rate [ 92 88 86 Brachial] Respiratory 16 15 16 Rate Blood Pressure Blood Pressure 139/65 H 141/65 H 162/68 H [Left Brachial artery] Blood Pressure [Right Brachial artery] O2 Saturation 95 95 06/12/18 06/12/18 06/12/18 08:00 08:42 09:00 Temperature 36.5 C Heart Rate [ 79 69 Brachial] Respiratory 14 14 Rate Blood Pressure 167/69 H Blood Pressure 167/79 H 179/158 H [Left Brachial artery] Blood Pressure [Right Brachial artery] O2 Saturation 97 96 06/12/18 06/12/18 06/12/18 10:00 11:00 12:00 Temperature 37.1 C Heart Rate [ 59 L 62 72 Brachial] Respiratory 14 12 18 Rate Blood Pressure Blood Pressure 137/52 H 92/40 L [Left Brachial artery] Blood Pressure 169/61 H [Right Brachial artery] O2 Saturation 92 97 06/12/18 13:00 Temperature Heart Rate [ 66 Brachial] Respiratory 15 Rate Blood Pressure Blood Pressure [Left Brachial artery] Blood Pressure 117/53 L [Right Brachial artery] O2 Saturation 90 L Oxygen O2 Source Room air I&O (Last 24 Hrs): Intake and Output Totals x24h 06/10/18 06/11/18 06/12/18 23:59 23:59 23:59 Intake Total 4847.386 3790.266 2131.667 Output Total 913 700 600 Balance 3934.386 3090.266 1531.667 General: Alert, Mild distress, Other (Lethargic) HEENT: Mucous membr. moist/pink Neck: Supple Neuro: Non Focal Cardiovascular: Regular rate Respiratory: No respiratory distress Abdomen: Soft, Other (Obese) Genitourinary: Other (Has diaper on) Extremities: Other (trace edema, several large bruises of upper extrem) - Results Results: Laboratory Results WBC 8.9 x10^3/uL (4.8-10.8) 06/12/18 09:09 RBC 3.56 10^6/uL (4.70-6.10) L 06/12/18 09:09 Hgb 11.7 g/dL (14.0-18.0) L 06/12/18 09:09 Hct 32.1 % (42.0-52.0) L 06/12/18 09:09 MCV 90.0 fL (80.0-94.0) 06/12/18 09:09 MCH 32.7 pg (27.0-31.0) H 06/12/18 09:09 MCHC 36.4 g/dL (32.0-36.0) H 06/12/18 09:09 RDW 16.9 % (12.0-15.0) H 06/12/18 09:09 Plt Count 52 10^3/uL (130-450) L 06/12/18 09:09 MPV 8.8 fL (7.4-11.4) 06/12/18 09:09 Neut # (Auto) Not Reportable 06/12/18 09:09 Lymph # (Auto) Not Reportable 06/12/18 09:09 [place] # (Auto) Not Reportable 06/12/18 09:09 Eos # (Auto) Not Reportable 06/12/18 09:09 Baso # (Auto) Not Reportable 06/12/18 09:09 Absolute Nucleated RBC Not Reportable 06/12/18 09:09 Total Counted 100 06/12/18 09:09 Band Neuts % (Manual) 9 % (0-10) 06/12/18 09:09 Abnorm Lymph % (Manual) 4 % 06/12/18 09:09 Metamyelocytes % 3 % (-0) H 06/12/18 05:25 Myelocytes % 2 % (-0) H 06/12/18 05:25 Other Cells % 4 % 06/12/18 09:09 Nucleated RBC % Not Reportable 06/12/18 09:09 Neutrophils # (Manual) 6.6 10^3/uL (1.5-6.6) 06/12/18 09:09 Lymphocytes # (Manual) 1.2 10^3/uL (1.5-3.5) L 06/12/18 09:09 Monocytes # (Manual) 0.8 10^3/uL (0.0-1.0) 06/12/18 09:09 Eosinophils # (Manual) 0.0 10^3/uL (0-0.7) 06/12/18 09:09 Basophils # (Manual) 0.0 10^3/uL (0-0.1) 06/12/18 09:09 Nucleated RBCs 1 % 06/12/18 09:09 Differential Comment MANUAL DIFFERENTIAL 06/12/18 09:09 Manual Slide Review Indicated 06/11/18 09:05 WBC Morphology TOXIC GRANULATION (NORMAL) 06/11/18 09:05 WBC Morphology 1+ TOXIC GRANULATION (NORMAL) 06/12/18 09:09 Platelet Estimate DECREASED (<130,000) (NORMAL) 06/12/18 09:09 Platelet Morphology NORMAL APPEARANCE (NORMAL) 06/12/18 09:09 RBC Morph Micro Appear 1+ ANISOCYTOSIS (NORMAL) 06/12/18 09:09 RBC Morph Micro Appear 1+ ANISOCYTOSIS (NORMAL) 1+ MACROCYTOSIS (NORMAL) 06/12/18 05:25 PT 13.2 secs (9.9-12.6) H 06/09/18 22:03 INR 1.2 (0.8-1.2) 06/09/18 22:03 APTT 90.6 secs (24.9-33.3) H 06/09/18 22:03 D-Dimer 1005.5 ng/mL (200.0-255.0) H 06/09/18 18:01 Anti-Xa Level 0.7 U/mL (-0.7) 06/10/18 07:59 Sodium 124 mmol/L (135-145) L 06/12/18 09:09 Potassium 4.3 mmol/L (3.5-5.0) 06/12/18 09:09 Chloride 93 mmol/L (101-111) L 06/12/18 09:09 Carbon Dioxide 19 mmol/L (21-32) L 06/12/18 09:09 Anion Gap 12.0 (6-13) 06/12/18 09:09 BUN 18 mg/dL (6-20) 06/12/18 09:09 Creatinine 0.6 mg/dL (0.6-1.2) 06/12/18 09:09 Estimated GFR (MDRD) 133 (>89) 06/12/18 09:09 Glucose 218 mg/dL (70-100) H 06/12/18 09:09 POC Whole Bld Glucose 217 mg/dL (70 - 100) H 06/12/18 11:49 Glycated Hemoglobin 6.7 % (4.6-6.2) H 06/12/18 05:25 Estim Average Glucose 146 (70-100) H 06/12/18 05:25 Lactic Acid 2.5 mmol/L (0.5-2.2) H 06/11/18 10:50 Calcium 8.2 mg/dL (8.5-10.3) L 06/12/18 09:09 Total Bilirubin 1.1 mg/dL (0.2-1.0) H 06/11/18 09:05 Direct Bilirubin 0.4 mg/dL (0.1-0.5) 06/11/18 09:05 AST 72 IU/L (10-42) H 06/11/18 09:05 ALT 62 IU/L (10-60) H 06/11/18 09:05 Alkaline Phosphatase 241 IU/L (42-121) H 06/11/18 09:05 Troponin I 0.06 ng/mL (<0.49) 06/10/18 11:23 Total Protein 5.3 g/dL (6.7-8.2) L 06/11/18 09:05 Albumin 3.0 g/dL (3.2-5.5) L 06/11/18 09:05 Globulin 2.3 g/dL (2.1-4.2) 06/11/18 09:05 Albumin/Globulin Ratio 1.3 (1.0-2.2) 06/09/18 18:01 Lipase 26 U/L (22-51) 06/09/18 18:01 Urine Color YELLOW 06/09/18 23:25 Urine Clarity CLEAR (CLEAR) 06/09/18 23:25 Urine pH 5.5 PH (5.0-7.5) 06/09/18 23:25 Ur Specific [place] 1.020 (1.002-1.030) 06/09/18 23:25 Urine Protein 100 mg/dL (NEGATIVE) H 06/09/18 23:25 Urine Glucose (UA) 100 mg/dL (NEGATIVE) H 06/09/18 23:25 Urine Ketones NEGATIVE mg/dL (NEGATIVE) 06/09/18 23:25 Urine Occult Blood MODERATE (NEGATIVE) H 06/09/18 23:25 Urine Nitrite NEGATIVE (NEGATIVE) 06/09/18 23:25 Urine Bilirubin NEGATIVE (NEGATIVE) 06/09/18 23:25 Urine Urobilinogen 0.2 (NORMAL) E.U./dL (NORMAL) 06/09/18 23:25 Ur Leukocyte Esterase NEGATIVE (NEGATIVE) 06/09/18 23:25 Urine RBC None Seen /HPF (0-5) 06/09/18 23:25 Urine WBC 0-3 /HPF (0-3) 06/09/18 23:25 Ur Squamous Epith Cells NONE SEEN (<= Few) 06/09/18 23:25 Urine Bacteria None Seen /HPF (None Seen) 06/09/18 23:25 Ur Microscopic Review INDICATED 06/09/18 23:25 Urine Culture Comments NOT INDICATED 06/09/18 23:25 Last Dose Date UNK 06/12/18 05:25 Last Dose Time UNK 06/12/18 05:25 Digoxin 0.4 ng/mL 06/12/18 05:25 MRSA Surveill Initial NEGATIVE (NEGATIVE) 06/10/18 01:44 Sepsis Event Note (H) - Evaluation Current Stage of Sepsis: Ruled out
[2018-06-12] MEDS: FUROSEMIDE 20 MG/2 ML VIAL IVP SCH (14:50)
[2018-06-12] MEDS: POLYETHYLENE GLYCOL 3350 17 GM PACKET PO SCH (17:08)
[2018-06-12] MEDS: MORPHINE ER 15 MG TABLET PO PRN (19:53)
[2018-06-13] MEDS: SODIUM CHLORIDE 0.9% 1,000 ML IV SCH ×4 (01:06→17:30)
[2018-06-13] MEDS: SODIUM CHLORIDE FLUSH 0.9% 10 ML SYRINGE IVP SCH ×3 (02:05→17:04)
[2018-06-13 05:11] LABS: BASOPHILS % (AUTO) 0.1 %; EOSINOPHILS % (AUTO) 0.1 %; HGB - HEMOGLOBIN 11.3 g/dL (14.0-18.0); LYMPHOCYTES % (AUTO) 5.4 %; MEAN CORPUSCULAR HEMOGLOBIN 32.4 pg (27.0-31.0); MEAN CORPUSCULAR HGB CONC 33.9 g/dL (32.0-36.0); MEAN CORPUSCULAR VOLUME 95.6 fL (80.0-94.0); MEAN PLATELET VOLUME 8.9 fL (7.4-11.4); MONOCYTES % (AUTO) 0.4 %; PLT - PLATELET COUNT 48 10^3/uL (130-450); RED BLOOD COUNT 3.49 10^6/uL (4.70-6.10); RED CELL DISTRIBUTION WIDTH 17.2 % (12.0-15.0); WHITE BLOOD COUNT 11.8 x10^3/uL (4.8-10.8)
[2018-06-13 05:20] LABS: CALCIUM 7.7 mg/dL (8.5-10.3); CREATININE 0.7 mg/dL (0.6-1.2)
[2018-06-13] MEDS: oxyCODONE 5 MG TABLET PO PRN ×2 (05:47→21:25)
[2018-06-13 05:55] LABS: ABNORMAL LYMPHS % (MANUAL) 2 %; BAND NEUTROPHILS % (MANUAL) 28 %; LYMPHOCYTES # (MANUAL) 0.6 10^3/uL (1.5-3.5); LYMPHOCYTES % (MANUAL) 3 %; METAMYELOCYTES % (MANUAL) 2 %; MONOCYTES # (MANUAL) 1.1 10^3/uL (0.0-1.0); MYELOCYTES % (MANUAL) 2 %; NEUTROPHILS # (MANUAL) 9.7 10^3/uL (1.5-6.6); NEUTROPHILS % (MANUAL) 54 %
[2018-06-13 05:56] LABS: PLATELET ESTIMATE, MANUAL DECREASED (<130,000) (NORMAL)
[2018-06-13] MEDS: PANTOPRAZOLE 40 MG TABLET PO SCH (06:51)
[2018-06-13] MEDS: INSULIN ASPART 300 UNIT/3 ML PEN SUBQ SCH ×4 (08:20→21:25)
[2018-06-13] MEDS: DOCUSATE SODIUM 250 MG CAPSULE PO SCH (08:21)
[2018-06-13] MEDS: APIXABAN 5 MG TABLET PO SCH ×2 (08:21→21:24)
[2018-06-13] MEDS: DEXAMETHASONE 4 MG TABLET PO SCH ×2 (08:21→21:24)
[2018-06-13] MEDS: FUROSEMIDE 20 MG/2 ML VIAL IVP SCH (08:22)
[2018-06-13] MEDS: POLYETHYLENE GLYCOL 3350 17 GM PACKET PO SCH (08:22)
[2018-06-13] MEDS: METOPROLOL SUCCINATE 25 MG TABLET PO SCH ×2 (08:27→17:28)
[2018-06-13] MEDS: SENNA 8.6 MG TABLET PO SCH (08:27)
--- NOTE | 2018-06-13 15:36 | PROVIDER PROGRESS NOTE ---
Assessment/Plan - Problem List (1) Acute alteration in mental status Assessment/Plan: Much improvement in lucidity today. He even reports being sad that no family stayed with him to re-orient him when he was so confused. He does not remember puling out iv. Continue supportive care. (2) Atrial flutter with rapid ventricular response Assessment/Plan: Heart rate is controlled and even 4 episodes of 2 sec pauses seen on telemetry Will decrease Cardizem 60 mg po q8h dose to Cardizem CD 120 mg daily. Continue Eliquis (3) Thrombocytopenia due to drugs Assessment/Plan: Plt count is still hovering around 50. This is felt to be from his chemo and the Oncologist at that I spoke to, requesting transfer 2 days ago, said to pr ovide supportive care and watch and wait, that no transfer was deemed necessary by her. Daily CBC planned. Watch for bleeding. (4) Hyponatremia Assessment/Plan: Persistent low Na. Lasix was started yesterday, due to (+) 11L in fluid balance since admission. Follow daily BMP. Will check urine Na (5) Volume overload Assessment/Plan: As above (6) Pulmonary emboli Assessment/Plan: Patient on PE doses of eliquis for 1 week, he is on Day #3. No respiratory compromise, except hoarseness, no cough. (7) Hoarseness of voice Assessment/Plan: Will check a CXR. Will order prn Cepacol genna. (8) Prostate cancer metastatic to bone Assessment/Plan: Continue pain meds for bone pain from mets. He also does no wish to have a Robertson in place, as it was painful when placed in the ICU. (9) Chemotherapy adverse reaction Qualifiers: Encounter type: subsequent encounter Qualified Code(s): T45.1X5D - Adverse effect of antineoplastic and immunosuppressive drugs, subsequent encounter Assessment/Plan: Low plts from chemo. Watch CBC daily. - Current Meds Current Meds: Current Medications Generic Name Dose Route Start Last Admin Trade Name Freq PRN Reason Stop Dose Admin Apixaban 10 mg 06/11/18 21:00 06/13/18 08:21 Eliquis PO 10 mg BID GERRI Administration Dexamethasone 8 mg 06/10/18 21:00 06/13/18 08:21 Decadron PO 8 mg BID GERRI Administration Docusate Sodium 250 - 500 mg 06/13/18 09:00 06/13/18 08:21 Colace 250mg Capsule PO 250 mg DAILY GERRI Administration Furosemide 20 mg 06/12/18 13:56 06/13/18 08:22 Lasix Inj 20mg Vial IVP 20 mg DAILY GERRI Administration Prochlorperazine Edisylate 10 52 mls @ 200 mls/hr 06/10/18 13:25 06/10/18 15:52 mg/ Sodium Chloride IV Infused Q6H PRN Infusion Nausea / Vomiting Sodium Chloride 1,000 mls @ 100 mls/hr 06/13/18 06:52 06/13/18 08:28 Normal Saline 0.9% IV 100 mls/hr .Q10H GERRI Administration Insulin Aspart 1 - 9 unit 06/12/18 12:00 06/13/18 12:39 Novolog SUBQ 3 unit 0800,1200,1700,2100 GERRI Administration Protocol Lorazepam 1 mg 06/11/18 08:42 06/11/18 22:42 Ativan Inj (Vial) IVP 1 mg Q1H PRN Administration CIWA >8 Protocol Metoprolol Succinate 50 mg 06/11/18 18:00 06/13/18 08:27 Toprol Xl PO 50 mg 0900,1800 GERRI Administration Mineral Oil 1 applic 06/10/18 16:21 06/12/18 08:17 Cavilon TOP 1 applic PRN PRN Administration Skin Care Morphine Sulfate 15 mg 06/10/18 12:51 06/12/18 19:53 PO 15 mg BID PRN Administration PAIN Oxycodone HCl 5 mg 06/09/18 21:16 06/13/18 05:47 Roxicodone PO 5 mg Q6H PRN Administration PAIN Pantoprazole Sodium 40 mg 06/10/18 07:00 06/13/18 06:51 Protonix PO 40 mg QDAC GERRI Administration Polyethylene Glycol 17 gm 06/10/18 09:00 06/13/18 08:22 Miralax PO 17 gm DAILY GERRI Administration Senna 8.6 - 17.2 mg 06/13/18 09:00 06/13/18 08:27 Senokot PO 17.2 mg DAILY GERRI Administration Sodium Chloride 10 ml 06/10/18 01:00 06/13/18 08:22 Normal Saline Flush 0.9% IVP 10 ml 0100,0900,1700 GERRI Administration - Lab Result Fish Bone Diagrams: 06/13/18 05:05 06/13/18 05:05 - Additional Planning My Orders: My Active Orders 06/13/18 09:00 Docusate Sodium 250Mg Capsule [Colace 250Mg Capsule] 250 - 500 mg PO DAILY Senna [Senokot] 8.6 - 17.2 mg PO DAILY 06/13/18 18:00 diltiaZEM [Cardizem] 60 mg PO Q12H 06/14/18 09:00 diltiaZEM CD [Cardizem Cd] 120 mg PO DAILY Subjective - Subjective Patient Reports: Feeling Better, Other (Hoarseness) Nursing Reports: Other (Cooperative, was able to sit up in chair and in commode) Objective Vital Signs: Vital Signs - 24 hr 06/12/18 06/12/18 06/12/18 16:00 17:00 18:00 Temperature 36.4 C L Heart Rate [ 81 79 78 Brachial] Respiratory 15 17 17 Rate Blood Pressure Blood Pressure 149/129 H 141/74 H 140/77 H [Right Brachial artery] O2 Saturation 95 96 06/12/18 06/12/18 06/12/18 18:32 19:00 20:00 Temperature Heart Rate [ 91 86 Brachial] Respiratory 17 15 Rate Blood Pressure 140/77 H Blood Pressure 135/67 H 127/76 [Right Brachial artery] O2 Saturation 06/12/18 06/12/18 06/12/18 21:00 21:36 22:00 Temperature Heart Rate [ 82 76 Brachial] Respiratory 17 20 Rate Blood Pressure Blood Pressure 136/88 H 132/104 H [Right Brachial artery] O2 Saturation 95 06/12/18 06/13/18 06/13/18 23:00 00:00 01:00 Temperature 36.6 C 36.8 C 36.5 C Heart Rate [ 76 75 65 Brachial] Respiratory 15 15 16 Rate Blood Pressure Blood Pressure 127/75 121/78 113/54 L [Right Brachial artery] O2 Saturation 95 95 06/13/18 06/13/18 06/13/18 01:15 04:15 08:21 Temperature 36.7 C Heart Rate [ 109 H Brachial] Respiratory 18 Rate Blood Pressure 113/56 L 123/66 Blood Pressure 123/66 [Right Brachial artery] O2 Saturation 94 06/13/18 06/13/18 09:46 12:55 Temperature 36.6 C 36.4 C L Heart Rate [ 79 77 Brachial] Respiratory 16 16 Rate Blood Pressure Blood Pressure 129/64 143/71 H [Right Brachial artery] O2 Saturation 95 96 Oxygen O2 Source Room air I&O (Last 24 Hrs): Intake and Output Totals x24h 06/11/18 06/12/18 06/13/18 23:59 23:59 23:59 Intake Total 3790.266 3631.667 2905 Output Total 700 600 Balance 3090.266 3031.667 2905 General: Alert, Other (Oriented to self and place) HEENT: Mucous membr. moist/pink Neck: Supple Neuro: Non Focal Cardiovascular: No murmurs Respiratory: No respiratory distress, Breath sounds nml Abdomen: Soft Extremities: No edema - Results Results: Laboratory Results WBC 11.8 x10^3/uL (4.8-10.8) H 06/13/18 05:05 RBC 3.49 10^6/uL (4.70-6.10) L 06/13/18 05:05 Hgb 11.3 g/dL (14.0-18.0) L 06/13/18 05:05 Hct 33.4 % (42.0-52.0) L 06/13/18 05:05 MCV 95.6 fL (80.0-94.0) H 06/13/18 05:05 MCH 32.4 pg (27.0-31.0) H 06/13/18 05:05 MCHC 33.9 g/dL (32.0-36.0) 06/13/18 05:05 RDW 17.2 % (12.0-15.0) H 06/13/18 05:05 Plt Count 48 10^3/uL (130-450) L 06/13/18 05:05 MPV 8.9 fL (7.4-11.4) 06/13/18 05:05 Neut # (Auto) Not Reportable 06/13/18 05:05 Lymph # (Auto) Not Reportable 06/13/18 05:05 [place] # (Auto) Not Reportable 06/13/18 05:05 Eos # (Auto) Not Reportable 06/13/18 05:05 Baso # (Auto) Not Reportable 06/13/18 05:05 Absolute Nucleated RBC Not Reportable 06/13/18 05:05 Total Counted 100 06/13/18 05:05 Band Neuts % (Manual) 28 % (0-10) H 06/13/18 05:05 Abnorm Lymph % (Manual) 2 % 06/13/18 05:05 Metamyelocytes % 2 % (-0) H 06/13/18 05:05 Myelocytes % 2 % (-0) H 06/13/18 05:05 Other Cells % 4 % 06/12/18 09:09 Nucleated RBC % Not Reportable 06/13/18 05:05 Neutrophils # (Manual) 9.7 10^3/uL (1.5-6.6) H 06/13/18 05:05 Lymphocytes # (Manual) 0.6 10^3/uL (1.5-3.5) L 06/13/18 05:05 Monocytes # (Manual) 1.1 10^3/uL (0.0-1.0) H 06/13/18 05:05 Eosinophils # (Manual) 0.0 10^3/uL (0-0.7) 06/13/18 05:05 Basophils # (Manual) 0.0 10^3/uL (0-0.1) 06/13/18 05:05 Nucleated RBCs 1 % 06/12/18 09:09 Differential Comment MANUAL DIFFERENTIAL 06/12/18 09:09 Manual Slide Review Indicated 06/11/18 09:05 WBC Morphology TOXIC GRANULATION (NORMAL) 06/11/18 09:05 WBC Morphology 1+ TOXIC GRANULATION (NORMAL) 06/12/18 09:09 Platelet Estimate DECREASED (<130,000) (NORMAL) 06/13/18 05:05 Platelet Morphology NORMAL APPEARANCE (NORMAL) 06/12/18 09:09 RBC Morph Micro Appear 1+ ANISOCYTOSIS (NORMAL) 1+ MACROCYTOSIS (NORMAL) 06/12/18 05:25 RBC Morph Micro Appear 1+ ANISOCYTOSIS (NORMAL) 1+ MACROCYTOSIS (NORMAL) 06/13/18 05:05 RBC Morph Micro Appear 1+ ANISOCYTOSIS (NORMAL) 1+ MACROCYTOSIS (NORMAL) 06/13/18 05:05 PT 13.2 secs (9.9-12.6) H 06/09/18 22:03 INR 1.2 (0.8-1.2) 06/09/18 22:03 APTT 90.6 secs (24.9-33.3) H 06/09/18 22:03 D-Dimer 1005.5 ng/mL (200.0-255.0) H 06/09/18 18:01 Anti-Xa Level 0.7 U/mL (-0.7) 06/10/18 07:59 Sodium 126 mmol/L (135-145) L 06/13/18 05:05 Potassium 4.3 mmol/L (3.5-5.0) 06/13/18 05:05 Chloride 97 mmol/L (101-111) L 06/13/18 05:05 Carbon Dioxide 21 mmol/L (21-32) 06/13/18 05:05 Anion Gap 8.0 (6-13) 06/13/18 05:05 BUN 20 mg/dL (6-20) 06/13/18 05:05 Creatinine 0.7 mg/dL (0.6-1.2) 06/13/18 05:05 Estimated GFR (MDRD) 111 (>89) 06/13/18 05:05 Glucose 207 mg/dL (70-100) H 06/13/18 05:05 POC Whole Bld Glucose 196 mg/dL (70 - 100) H 06/13/18 11:57 Glycated Hemoglobin 6.7 % (4.6-6.2) H 06/12/18 05:25 Estim Average Glucose 146 (70-100) H 06/12/18 05:25 Lactic Acid 2.5 mmol/L (0.5-2.2) H 06/11/18 10:50 Calcium 7.7 mg/dL (8.5-10.3) L 06/13/18 05:05 Total Bilirubin 1.1 mg/dL (0.2-1.0) H 06/11/18 09:05 Direct Bilirubin 0.4 mg/dL (0.1-0.5) 06/11/18 09:05 AST 72 IU/L (10-42) H 06/11/18 09:05 ALT 62 IU/L (10-60) H 06/11/18 09:05 Alkaline Phosphatase 241 IU/L (42-121) H 06/11/18 09:05 Troponin I 0.06 ng/mL (<0.49) 06/10/18 11:23 Total Protein 5.3 g/dL (6.7-8.2) L 06/11/18 09:05 Albumin 3.0 g/dL (3.2-5.5) L 06/11/18 09:05 Globulin 2.3 g/dL (2.1-4.2) 06/11/18 09:05 Albumin/Globulin Ratio 1.3 (1.0-2.2) 06/09/18 18:01 Lipase 26 U/L (22-51) 06/09/18 18:01 Urine Color YELLOW 06/09/18 23:25 Urine Clarity CLEAR (CLEAR) 06/09/18 23:25 Urine pH 5.5 PH (5.0-7.5) 06/09/18 23:25 Ur Specific [place] 1.020 (1.002-1.030) 06/09/18 23:25 Urine Protein 100 mg/dL (NEGATIVE) H 06/09/18 23:25 Urine Glucose (UA) 100 mg/dL (NEGATIVE) H 06/09/18 23:25 Urine Ketones NEGATIVE mg/dL (NEGATIVE) 06/09/18 23:25 Urine Occult Blood MODERATE (NEGATIVE) H 06/09/18 23:25 Urine Nitrite NEGATIVE (NEGATIVE) 06/09/18 23:25 Urine Bilirubin NEGATIVE (NEGATIVE) 06/09/18 23:25 Urine Urobilinogen 0.2 (NORMAL) E.U./dL (NORMAL) 06/09/18 23:25 Ur Leukocyte Esterase NEGATIVE (NEGATIVE) 06/09/18 23:25 Urine RBC None Seen /HPF (0-5) 06/09/18 23:25 Urine WBC 0-3 /HPF (0-3) 06/09/18 23:25 Ur Squamous Epith Cells NONE SEEN (<= Few) 06/09/18 23:25 Urine Bacteria None Seen /HPF (None Seen) 06/09/18 23:25 Ur Microscopic Review INDICATED 06/09/18 23:25 Urine Culture Comments NOT INDICATED 06/09/18 23:25 Last Dose Date UNK 06/12/18 05:25 Last Dose Time UNK 06/12/18 05:25 Digoxin 0.4 ng/mL 06/12/18 05:25 MRSA Surveill Initial NEGATIVE (NEGATIVE) 06/10/18 01:44 Sepsis Event Note (H) - Evaluation Current Stage of Sepsis: Ruled out
[2018-06-13] MEDS ORDERED: BENZOCAINE/MENTHOL LOZENGE MM PRN (15:44)
--- NOTE | 2018-06-13 16:18 | XRAY Report ---
Reason: Cough Procedure Date: 06/13/2018 Accession Number: [id number] / [id number] Procedure: XR - Chest 1 View X-Ray CPT Code: 60371 FULL RESULT: EXAM: CHEST RADIOGRAPHY EXAM DATE: 06/13/2018 04:00 PM. CLINICAL HISTORY: Cough. COMPARISON: CHEST ANGIO 06/09/2018 6:56 PM. TECHNIQUE: 1 view. FINDINGS: Lungs/Pleura: New mild blunting of the left costophrenic angle, could represent small left pleural effusion versus atelectasis. Inferior right costophrenic angle excluded from the image. Mediastinum: Within exam limitations, the cardiomediastinal contour is normal. Other: Extensive blastic bone metastasis again noted. IMPRESSION: New mild blunting of the left costophrenic angle, could represent small left pleural effusion versus atelectasis. Extensive blastic bone metastasis again noted. [facility]
[2018-06-14] MEDS: MORPHINE ER 15 MG TABLET PO PRN ×2 (00:44→17:44)
[2018-06-14] MEDS: SODIUM CHLORIDE FLUSH 0.9% 10 ML SYRINGE IVP SCH ×3 (02:06→17:23)
[2018-06-14] MEDS: SODIUM CHLORIDE 0.9% 1,000 ML IV SCH (03:43)
[2018-06-14] MEDS: oxyCODONE 5 MG TABLET PO PRN ×3 (03:50→20:56)
[2018-06-14] MEDS: PANTOPRAZOLE 40 MG TABLET PO SCH (06:09)
[2018-06-14] MEDS ORDERED: SODIUM CHLORIDE 0.9% 1,000 ML IV SCH (07:34)
[2018-06-14] MEDS: INSULIN ASPART 300 UNIT/3 ML PEN SUBQ SCH ×4 (08:31→20:57)
[2018-06-14] MEDS: POLYETHYLENE GLYCOL 3350 17 GM PACKET PO SCH (08:35)
[2018-06-14] MEDS: APIXABAN 5 MG TABLET PO SCH ×2 (08:37→20:55)
[2018-06-14] MEDS: diltiaZEM CD 120 MG CAPSULE PO SCH (08:38)
[2018-06-14] MEDS: DEXAMETHASONE 4 MG TABLET PO SCH ×2 (08:39→20:56)
[2018-06-14] MEDS: SENNA 8.6 MG TABLET PO SCH (08:40)
[2018-06-14] MEDS: DOCUSATE SODIUM 250 MG CAPSULE PO SCH (08:40)
[2018-06-14] MEDS: METOPROLOL SUCCINATE 25 MG TABLET PO SCH ×2 (08:40→18:17)
[2018-06-14] MEDS: FUROSEMIDE 20 MG/2 ML VIAL IVP SCH (08:42)
[2018-06-14 08:52] LABS: BASOPHILS % (AUTO) 0.1 %; HGB - HEMOGLOBIN 11.7 g/dL (14.0-18.0); MEAN CORPUSCULAR HEMOGLOBIN 32.2 pg (27.0-31.0); MEAN CORPUSCULAR HGB CONC 34.3 g/dL (32.0-36.0); MEAN CORPUSCULAR VOLUME 93.8 fL (80.0-94.0); MEAN PLATELET VOLUME 8.6 fL (7.4-11.4); MONOCYTES % (AUTO) 3.3 %; NEUTROPHILS % (AUTO) 91.6 %; PLT - PLATELET COUNT 47 10^3/uL (130-450); RED BLOOD COUNT 3.64 10^6/uL (4.70-6.10); RED CELL DISTRIBUTION WIDTH 17.4 % (12.0-15.0); WHITE BLOOD COUNT 13.5 x10^3/uL (4.8-10.8)
[2018-06-14 09:00] LABS: ALBUMIN 2.8 g/dL (3.2-5.5); ALBUMIN/GLOBULIN RATIO 1.3 (1.0-2.2); BILIRUBIN,TOTAL 1.2 mg/dL (0.2-1.0); CALCIUM 7.9 mg/dL (8.5-10.3); CREATININE 0.7 mg/dL (0.6-1.2)
[2018-06-14 09:10] LABS: ABNORMAL LYMPHS % (MANUAL) 0 %; BAND NEUTROPHILS % (MANUAL) 4 %; LYMPHOCYTES # (MANUAL) 0.8 10^3/uL (1.5-3.5); LYMPHOCYTES % (MANUAL) 6 %; METAMYELOCYTES % (MANUAL) 1 %; MONOCYTES # (MANUAL) 2.6 10^3/uL (0.0-1.0); NEUTROPHILS % (MANUAL) 70 %; RBC MORPHOLOGY (MULTIPLE) 1+ ANISOCYTOSIS (NORMAL)
[2018-06-14 09:11] LABS: DIFFERENTIAL COMMENT MANUAL DIFFERENTIAL; PLATELET ESTIMATE, MANUAL DECREASED (<130,000) (NORMAL); PLATELET MORPHOLOGY NORMAL APPEARANCE (NORMAL)
--- NOTE | 2018-06-14 13:10 | PROVIDER PROGRESS NOTE ---
Assessment/Plan - Problem List (1) Prostate cancer metastatic to bone Assessment/Plan: He is in a Clinical Trial of chemotherapy with his Oncologist, Dr Sherie Lakhani of the clinic: [facility] I tried to contact his Oncologist for further directions, several days ago and spoke to her RN, Court, who advised that I try to get him transferred to . He was not accepted for transfer several days ago, when he had the first drop in plt count and new confusion. Today is the second day of being able to do Physical Therapy, since he was confused and very weak and tired prior to yesterday. He may require a long hospitalization, therefore I will re-try having him accepted in transfer to [facility] (which is associated with [facility]). (2) Chemotherapy adverse reaction Qualifiers: Encounter type: subsequent encounter Qualified Code(s): T45.1X5D - Adverse effect of antineoplastic and immunosuppressive drugs, subsequent encounter Assessment/Plan: Thrombocytopenia was an expected adverse reaction, per the [id number]. Isis, the [id number], brought me handouts that were provided to the family: The patient received Carboplatin and Docetaxel. The side effects of Carboplatin do include a drop in CBC counts with the lowest at 21 days, also weakness, low Mg, and confusion in patients >65 y/o, and others. The side effects of Docetaxel include dropping CBC counts with the linda at 5-9 days, fluid retention, peripheral neuropathy, and others (3) Volume overload Assessment/Plan: The last CXR did show pulmonary congestion and he was (+) 11 L from the time of admission when Lasix was started. He is currently 14L (+) balance since admission. Continue diuretics carefully. Monitor I's and O's, BMP, Mg, BUN/creat. (4) Thrombocytopenia due to drugs Assessment/Plan: The plt count hovers around 50. There are no signs of excessive bleeding. (5) Hyponatremia Assessment/Plan: Salien was being used. Will decrease to KVO. Obtain urine Na. Follow daily BMP. (6) Atrial flutter with rapid ventricular response Assessment/Plan: HR is now controlled without pauses of 2 sec. (7) Pulmonary emboli Assessment/Plan: He is on PE doses of Eliquis for 7 days. No pulmonary complaints. (8) Hoarseness of voice Assessment/Plan: Lozenges were ordered prn. I suspect it was from a slight cough due to volume overload. (9) Acute alteration in mental status Assessment/Plan: Resolved - Current Meds Current Meds: Current Medications Generic Name Dose Route Start Last Admin Trade Name Freq PRN Reason Stop Dose Admin Apixaban 10 mg 06/11/18 21:00 06/14/18 08:37 Eliquis PO 10 mg BID GERRI Administration Dexamethasone 8 mg 06/10/18 21:00 06/14/18 08:39 Decadron PO 8 mg BID GERRI Administration Diltiazem HCl 120 mg 06/14/18 09:00 06/14/18 08:38 Cardizem Cd PO 120 mg DAILY GERRI Administration Docusate Sodium 250 - 500 mg 06/13/18 09:00 06/14/18 08:40 Colace 250mg Capsule PO Not Given DAILY GERRI Furosemide 20 mg 06/12/18 13:56 06/14/18 08:42 Lasix Inj 20mg Vial IVP 20 mg DAILY GERRI Administration Prochlorperazine Edisylate 10 52 mls @ 200 mls/hr 06/10/18 13:25 06/10/18 15:52 mg/ Sodium Chloride IV Infused Q6H PRN Infusion Nausea / Vomiting Insulin Aspart 1 - 9 unit 06/12/18 12:00 06/14/18 08:31 Novolog SUBQ 3 unit 0800,1200,1700,2100 GERRI Administration Protocol Lorazepam 1 mg 06/11/18 08:42 06/11/18 22:42 Ativan Inj (Vial) IVP 1 mg Q1H PRN Administration CIWA >8 Protocol Metoprolol Succinate 50 mg 06/11/18 18:00 06/14/18 08:40 Toprol Xl PO 50 mg 0900,1800 GERRI Administration Mineral Oil 1 applic 06/10/18 16:21 06/12/18 08:17 Cavilon TOP 1 applic PRN PRN Administration Skin Care Morphine Sulfate 15 mg 06/10/18 12:51 06/14/18 00:44 PO 15 mg BID PRN Administration PAIN Oxycodone HCl 5 mg 06/09/18 21:16 06/14/18 03:50 Roxicodone PO 5 mg Q6H PRN Administration PAIN Pantoprazole Sodium 40 mg 06/10/18 07:00 06/14/18 06:09 Protonix PO 40 mg QDAC GERRI Administration Polyethylene Glycol 17 gm 06/10/18 09:00 06/14/18 08:35 Miralax PO 17 gm DAILY GERRI Administration Senna 8.6 - 17.2 mg 06/13/18 09:00 06/14/18 08:40 Senokot PO Not Given DAILY GERRI Sodium Chloride 10 ml 06/10/18 01:00 06/14/18 08:41 Normal Saline Flush 0.9% IVP 10 ml 0100,0900,1700 GERRI Administration - Lab Result Fish Bone Diagrams: 06/14/18 08:40 06/14/18 08:40 - Additional Planning My Orders: My Active Orders 06/13/18 15:44 Benzocaine/Menthol [Cepacol] 1 lozenge MM Q2HR PRN 06/14/18 07:34 Sodium Chloride 0.9% [Normal Saline 0.9%] 1,000 ml IV TKO 06/14/18 09:00 diltiaZEM CD [Cardizem Cd] 120 mg PO DAILY 06/15/18 05:00 CBC - COMP BLD CT W/AUTO DIFF [HEME] DAILYLAB CMP [COMPREHENSIVE METABOLIC PANEL] [CHEM] DAILYLAB Subjective - Subjective Patient Reports: Resting Comfortably Nursing Reports: Other (Poor apetite, is cooperative however) Objective Vital Signs: Vital Signs - 24 hr 06/13/18 06/13/18 06/13/18 15:35 21:00 23:45 Temperature 36.9 C 36.5 C 36.2 C L Heart Rate [ 80 83 86 Brachial] Respiratory 16 16 18 Rate Blood Pressure 168/68 H 125/62 147/66 H [Right Brachial artery] O2 Saturation 97 96 95 06/14/18 06/14/18 06/14/18 06:10 07:38 12:32 Temperature 36.6 C 36.5 C 36.3 C L Heart Rate [ 85 88 88 Brachial] Respiratory 18 18 20 Rate Blood Pressure 158/68 H 150/72 H 148/88 H [Right Brachial artery] O2 Saturation 95 97 96 Oxygen O2 Source Room air I&O (Last 24 Hrs): Intake and Output Totals x24h 06/12/18 06/13/18 06/14/18 23:59 23:59 23:59 Intake Total 3631.667 4348.333 1110 Output Total 600 1125 Balance 3031.667 4348.333 -15 General: Alert HEENT: Mucous membr. moist/pink Neck: Supple Neuro: Non Focal Cardiovascular: Regular rate Respiratory: No respiratory distress Abdomen: Soft, Other (Obese) Extremities: No edema - Results Results: Laboratory Results WBC 13.5 x10^3/uL (4.8-10.8) H 06/14/18 08:40 RBC 3.64 10^6/uL (4.70-6.10) L 06/14/18 08:40 Hgb 11.7 g/dL (14.0-18.0) L 06/14/18 08:40 Hct 34.2 % (42.0-52.0) L 06/14/18 08:40 MCV 93.8 fL (80.0-94.0) 06/14/18 08:40 MCH 32.2 pg (27.0-31.0) H 06/14/18 08:40 MCHC 34.3 g/dL (32.0-36.0) 06/14/18 08:40 RDW 17.4 % (12.0-15.0) H 06/14/18 08:40 Plt Count 47 10^3/uL (130-450) L 06/14/18 08:40 MPV 8.6 fL (7.4-11.4) 06/14/18 08:40 Neut # (Auto) Not Reportable 06/14/18 08:40 Lymph # (Auto) Not Reportable 06/14/18 08:40 [place] # (Auto) Not Reportable 06/14/18 08:40 Eos # (Auto) Not Reportable 06/14/18 08:40 Baso # (Auto) Not Reportable 06/14/18 08:40 Absolute Nucleated RBC Not Reportable 06/14/18 08:40 Total Counted 100 06/14/18 08:40 Band Neuts % (Manual) 4 % (0-10) 06/14/18 08:40 Abnorm Lymph % (Manual) 0 % 06/14/18 08:40 Metamyelocytes % 1 % (-0) H 06/14/18 08:40 Myelocytes % 2 % (-0) H 06/13/18 05:05 Other Cells % 4 % 06/12/18 09:09 Nucleated RBC % Not Reportable 06/14/18 08:40 Neutrophils # (Manual) 10.0 10^3/uL (1.5-6.6) H 06/14/18 08:40 Lymphocytes # (Manual) 0.8 10^3/uL (1.5-3.5) L 06/14/18 08:40 Monocytes # (Manual) 2.6 10^3/uL (0.0-1.0) H 06/14/18 08:40 Eosinophils # (Manual) 0.0 10^3/uL (0-0.7) 06/14/18 08:40 Basophils # (Manual) 0.0 10^3/uL (0-0.1) 06/14/18 08:40 Nucleated RBCs 1 % 06/14/18 08:40 Differential Comment MANUAL DIFFERENTIAL 06/14/18 08:40 Manual Slide Review Indicated 06/11/18 09:05 WBC Morphology 1+ TOXIC GRANULATION (NORMAL) 06/14/18 08:40 Platelet Estimate DECREASED (<130,000) (NORMAL) 06/14/18 08:40 Platelet Morphology NORMAL APPEARANCE (NORMAL) 06/14/18 08:40 RBC Morph Micro Appear 1+ ANISOCYTOSIS (NORMAL) 1+ MACROCYTOSIS (NORMAL) 06/13/18 05:05 RBC Morph Micro Appear 1+ ANISOCYTOSIS (NORMAL) 06/14/18 08:40 PT 13.2 secs (9.9-12.6) H 06/09/18 22:03 INR 1.2 (0.8-1.2) 06/09/18 22:03 APTT 90.6 secs (24.9-33.3) H 06/09/18 22:03 D-Dimer 1005.5 ng/mL (200.0-255.0) H 06/09/18 18:01 Anti-Xa Level 0.7 U/mL (-0.7) 06/10/18 07:59 Sodium 126 mmol/L (135-145) L 06/14/18 08:40 Potassium 4.4 mmol/L (3.5-5.0) 06/14/18 08:40 Chloride 95 mmol/L (101-111) L 06/14/18 08:40 Carbon Dioxide 24 mmol/L (21-32) 06/14/18 08:40 Anion Gap 7.0 (6-13) 06/14/18 08:40 BUN 19 mg/dL (6-20) 06/14/18 08:40 Creatinine 0.7 mg/dL (0.6-1.2) 06/14/18 08:40 Estimated GFR (MDRD) 111 (>89) 06/14/18 08:40 Glucose 195 mg/dL (70-100) H 06/14/18 08:40 POC Whole Bld Glucose 192 mg/dL (70 - 100) H 06/14/18 11:33 Glycated Hemoglobin 6.7 % (4.6-6.2) H 06/12/18 05:25 Estim Average Glucose 146 (70-100) H 06/12/18 05:25 Lactic Acid 2.5 mmol/L (0.5-2.2) H 06/11/18 10:50 Calcium 7.9 mg/dL (8.5-10.3) L 06/14/18 08:40 Total Bilirubin 1.2 mg/dL (0.2-1.0) H 06/14/18 08:40 Direct Bilirubin 0.4 mg/dL (0.1-0.5) 06/11/18 09:05 AST 78 IU/L (10-42) H 06/14/18 08:40 ALT 120 IU/L (10-60) H 06/14/18 08:40 Alkaline Phosphatase 261 IU/L (42-121) H 06/14/18 08:40 Troponin I 0.06 ng/mL (<0.49) 06/10/18 11:23 B-Natriuretic Peptide 426 pg/mL (5-100) H 06/14/18 08:40 Total Protein 5.0 g/dL (6.7-8.2) L 06/14/18 08:40 Albumin 2.8 g/dL (3.2-5.5) L 06/14/18 08:40 Globulin 2.2 g/dL (2.1-4.2) 06/14/18 08:40 Albumin/Globulin Ratio 1.3 (1.0-2.2) 06/14/18 08:40 Lipase 26 U/L (22-51) 06/09/18 18:01 Urine Color YELLOW 06/09/18 23:25 Urine Clarity CLEAR (CLEAR) 06/09/18 23:25 Urine pH 5.5 PH (5.0-7.5) 06/09/18 23:25 Ur Specific [place] 1.020 (1.002-1.030) 06/09/18 23:25 Urine Protein 100 mg/dL (NEGATIVE) H 06/09/18 23:25 Urine Glucose (UA) 100 mg/dL (NEGATIVE) H 06/09/18 23:25 Urine Ketones NEGATIVE mg/dL (NEGATIVE) 06/09/18 23:25 Urine Occult Blood MODERATE (NEGATIVE) H 06/09/18 23:25 Urine Nitrite NEGATIVE (NEGATIVE) 06/09/18 23:25 Urine Bilirubin NEGATIVE (NEGATIVE) 06/09/18 23:25 Urine Urobilinogen 0.2 (NORMAL) E.U./dL (NORMAL) 06/09/18 23:25 Ur Leukocyte Esterase NEGATIVE (NEGATIVE) 06/09/18 23:25 Urine RBC None Seen /HPF (0-5) 06/09/18 23:25 Urine WBC 0-3 /HPF (0-3) 06/09/18 23:25 Ur Squamous Epith Cells NONE SEEN (<= Few) 06/09/18 23:25 Urine Bacteria None Seen /HPF (None Seen) 06/09/18 23:25 Ur Microscopic Review INDICATED 06/09/18 23:25 Urine Culture Comments NOT INDICATED 06/09/18 23:25 Last Dose Date UNK 06/12/18 05:25 Last Dose Time UNK 06/12/18 05:25 Digoxin 0.4 ng/mL 06/12/18 05:25 MRSA Surveill Initial NEGATIVE (NEGATIVE) 06/10/18 01:44 Sepsis Event Note (H) - Evaluation Current Stage of Sepsis: Ruled out
[2018-06-15] MEDS: SODIUM CHLORIDE FLUSH 0.9% 10 ML SYRINGE IVP SCH ×3 (01:53→16:32)
[2018-06-15] MEDS: oxyCODONE 5 MG TABLET PO PRN (03:12)
[2018-06-15] MEDS: MORPHINE ER 15 MG TABLET PO PRN ×2 (04:54→16:14)
[2018-06-15 05:05] LABS: BASOPHILS % (AUTO) 0.1 %; EOSINOPHILS % (AUTO) 0.1 %; LYMPHOCYTES # (AUTO) 0.5 10^3/uL (1.5-3.5); LYMPHOCYTES % (AUTO) 3.5 %; MEAN CORPUSCULAR HEMOGLOBIN 32.4 pg (27.0-31.0); MEAN CORPUSCULAR HGB CONC 34.2 g/dL (32.0-36.0); MEAN CORPUSCULAR VOLUME 94.7 fL (80.0-94.0); MEAN PLATELET VOLUME 8.5 fL (7.4-11.4); MONOCYTES # (AUTO) 0.1 10^3/uL (0.0-1.0); MONOCYTES % (AUTO) 0.7 %; NEUTROPHILS % (AUTO) 95.6 %; PLT - PLATELET COUNT 50 10^3/uL (130-450); RED BLOOD COUNT 3.69 10^6/uL (4.70-6.10); RED CELL DISTRIBUTION WIDTH 17.5 % (12.0-15.0); WHITE BLOOD COUNT 14.6 x10^3/uL (4.8-10.8)
[2018-06-15 05:16] LABS: ALBUMIN 2.7 g/dL (3.2-5.5); ALBUMIN/GLOBULIN RATIO 1.2 (1.0-2.2); CALCIUM 7.8 mg/dL (8.5-10.3); CREATININE 0.6 mg/dL (0.6-1.2)
[2018-06-15] MEDS: PANTOPRAZOLE 40 MG TABLET PO SCH (06:13)
[2018-06-15] MEDS: INSULIN ASPART 300 UNIT/3 ML PEN SUBQ SCH ×2 (08:13→13:16)
[2018-06-15] MEDS: DOCUSATE SODIUM 250 MG CAPSULE PO SCH (08:18)
[2018-06-15] MEDS: FUROSEMIDE 20 MG/2 ML VIAL IVP SCH (08:19)
[2018-06-15] MEDS: diltiaZEM CD 120 MG CAPSULE PO SCH (08:19)
[2018-06-15] MEDS: APIXABAN 5 MG TABLET PO SCH (08:19)
[2018-06-15] MEDS: METOPROLOL SUCCINATE 25 MG TABLET PO SCH (08:19)
[2018-06-15] MEDS: DEXAMETHASONE 4 MG TABLET PO SCH (08:19)
[2018-06-15] MEDS: POLYETHYLENE GLYCOL 3350 17 GM PACKET PO SCH (08:20)
[2018-06-15] MEDS: SENNA 8.6 MG TABLET PO SCH (08:20)
--- NOTE | 2018-06-15 13:00 | PROVIDER PROGRESS NOTE ---
Assessment/Plan - Problem List (2) Chemotherapy adverse reaction Qualifiers: Encounter type: subsequent encounter Qualified Code(s): T45.1X5D - Adverse effect of antineoplastic and immunosuppressive drugs, subsequent encounter - Current Meds Current Meds: Current Medications Generic Name Dose Route Start Last Admin Trade Name Freq PRN Reason Stop Dose Admin Apixaban 10 mg 06/11/18 21:00 06/15/18 08:19 Eliquis PO 10 mg BID GERRI Administration Dexamethasone 8 mg 06/10/18 21:00 06/15/18 08:19 Decadron PO 8 mg BID GERRI Administration Diltiazem HCl 120 mg 06/14/18 09:00 06/15/18 08:19 Cardizem Cd PO 120 mg DAILY GERRI Administration Docusate Sodium 250 - 500 mg 06/13/18 09:00 06/15/18 08:18 Colace 250mg Capsule PO Not Given DAILY GERRI Furosemide 20 mg 06/12/18 13:56 06/15/18 08:19 Lasix Inj 20mg Vial IVP 20 mg DAILY GERRI Administration Prochlorperazine Edisylate 10 52 mls @ 200 mls/hr 06/10/18 13:25 06/10/18 15:52 mg/ Sodium Chloride IV Infused Q6H PRN Infusion Nausea / Vomiting Sodium Chloride 1,000 mls @ 0 mls/hr 06/14/18 07:34 06/14/18 14:33 Normal Saline 0.9% IV 30 mls/hr .Q0M GERRI Administration TKO Insulin Aspart 1 - 9 unit 06/12/18 12:00 06/15/18 08:13 Novolog SUBQ 3 unit 0800,1200,1700,2100 GERRI Administration Protocol Metoprolol Succinate 50 mg 06/11/18 18:00 06/15/18 08:19 Toprol Xl PO 50 mg 0900,1800 GERRI Administration Mineral Oil 1 applic 06/10/18 16:21 06/12/18 08:17 Cavilon TOP 1 applic PRN PRN Administration Skin Care Morphine Sulfate 15 mg 06/10/18 12:51 06/15/18 04:54 PO 15 mg BID PRN Administration PAIN Oxycodone HCl 5 mg 06/09/18 21:16 06/15/18 03:12 Roxicodone PO 5 mg Q6H PRN Administration PAIN Pantoprazole Sodium 40 mg 06/10/18 07:00 06/15/18 06:13 Protonix PO 40 mg QDAC GERRI Administration Polyethylene Glycol 17 gm 06/10/18 09:00 06/15/18 08:20 Miralax PO Not Given DAILY [facility] Senna 8.6 - 17.2 mg 06/13/18 09:00 06/15/18 08:20 Senokot PO Not Given DAILY [facility] Sodium Chloride 10 ml 06/10/18 01:00 06/15/18 08:20 Normal Saline Flush 0.9% IVP 10 ml 0100,0900,1700 GERRI Administration - Lab Result Fish Bone Diagrams: 06/15/18 04:50 06/15/18 04:50 Subjective - Subjective Patient Reports: Resting Comfortably Nursing Reports: Other (Poor appetite) Objective Vital Signs: Vital Signs - 24 hr 06/14/18 06/14/18 06/14/18 15:31 18:59 23:45 Temperature 36.4 C L 36.6 C 36.6 C Heart Rate [ 88 87 90 Brachial] Respiratory 16 20 20 Rate Blood Pressure 111/63 124/80 115/71 [Right Brachial artery] O2 Saturation 96 97 97 06/15/18 06/15/18 06/15/18 04:10 08:49 10:00 Temperature 36.8 C 36.4 C L 36.4 C L Heart Rate [ 87 88 88 Brachial] Respiratory 18 18 18 Rate Blood Pressure 138/70 H 135/77 H 135/77 H [Right Brachial artery] O2 Saturation 96 96 96 Oxygen O2 Source Room air I&O (Last 24 Hrs): Intake and Output Totals x24h 06/13/18 06/14/18 06/15/18 23:59 23:59 23:59 Intake Total 4348.333 2410 340 Output Total 1675 1750 Balance 4348.333 735 -1410 General: Other (Lethargic, pale) HEENT: Mucous membr. moist/pink Neck: Other (Obese) Neuro: Non Focal, Other (Weak) Cardiovascular: No murmurs Respiratory: No respiratory distress Abdomen: Soft, Other (Obese) Extremities: No edema - Results Results: Laboratory Results WBC 14.6 x10^3/uL (4.8-10.8) H 06/15/18 04:50 RBC 3.69 10^6/uL (4.70-6.10) L 06/15/18 04:50 Hgb 12.0 g/dL (14.0-18.0) L 06/15/18 04:50 Hct 35.0 % (42.0-52.0) L 06/15/18 04:50 MCV 94.7 fL (80.0-94.0) H 06/15/18 04:50 MCH 32.4 pg (27.0-31.0) H 06/15/18 04:50 MCHC 34.2 g/dL (32.0-36.0) 06/15/18 04:50 RDW 17.5 % (12.0-15.0) H 06/15/18 04:50 Plt Count 50 10^3/uL (130-450) L 06/15/18 04:50 MPV 8.5 fL (7.4-11.4) 06/15/18 04:50 Neut # (Auto) 14.0 10^3/uL (1.5-6.6) H 06/15/18 04:50 Lymph # (Auto) 0.5 10^3/uL (1.5-3.5) L 06/15/18 04:50 [place] # (Auto) 0.1 10^3/uL (0.0-1.0) 06/15/18 04:50 Eos # (Auto) 0.0 10^3/uL (0.0-0.7) 06/15/18 04:50 Baso # (Auto) 0.0 10^3/uL (0.0-0.1) 06/15/18 04:50 Absolute Nucleated RBC 0.08 x10^3/uL 06/15/18 04:50 Total Counted 100 06/14/18 08:40 Band Neuts % (Manual) 4 % (0-10) 06/14/18 08:40 Abnorm Lymph % (Manual) 0 % 06/14/18 08:40 Metamyelocytes % 1 % (-0) H 06/14/18 08:40 Myelocytes % 2 % (-0) H 06/13/18 05:05 Other Cells % 4 % 06/12/18 09:09 Nucleated RBC % 0.5 /100WBC 06/15/18 04:50 Neutrophils # (Manual) 10.0 10^3/uL (1.5-6.6) H 06/14/18 08:40 Lymphocytes # (Manual) 0.8 10^3/uL (1.5-3.5) L 06/14/18 08:40 Monocytes # (Manual) 2.6 10^3/uL (0.0-1.0) H 06/14/18 08:40 Eosinophils # (Manual) 0.0 10^3/uL (0-0.7) 06/14/18 08:40 Basophils # (Manual) 0.0 10^3/uL (0-0.1) 06/14/18 08:40 Nucleated RBCs 1 % 06/14/18 08:40 Differential Comment MANUAL DIFFERENTIAL 06/14/18 08:40 Manual Slide Review Indicated 06/11/18 09:05 WBC Morphology 1+ TOXIC GRANULATION (NORMAL) 06/14/18 08:40 Platelet Estimate DECREASED (<130,000) (NORMAL) 06/14/18 08:40 Platelet Morphology NORMAL APPEARANCE (NORMAL) 06/14/18 08:40 RBC Morph Micro Appear 1+ ANISOCYTOSIS (NORMAL) 1+ MACROCYTOSIS (NORMAL) 06/13/18 05:05 RBC Morph Micro Appear 1+ ANISOCYTOSIS (NORMAL) 06/14/18 08:40 PT 13.2 secs (9.9-12.6) H 06/09/18 22:03 INR 1.2 (0.8-1.2) 06/09/18 22:03 APTT 90.6 secs (24.9-33.3) H 06/09/18 22:03 D-Dimer 1005.5 ng/mL (200.0-255.0) H 06/09/18 18:01 Anti-Xa Level 0.7 U/mL (-0.7) 06/10/18 07:59 Sodium 128 mmol/L (135-145) L 06/15/18 04:50 Potassium 4.2 mmol/L (3.5-5.0) 06/15/18 04:50 Chloride 96 mmol/L (101-111) L 06/15/18 04:50 Carbon Dioxide 24 mmol/L (21-32) 06/15/18 04:50 Anion Gap 8.0 (6-13) 06/15/18 04:50 BUN 23 mg/dL (6-20) H 06/15/18 04:50 Creatinine 0.6 mg/dL (0.6-1.2) 06/15/18 04:50 Estimated GFR (MDRD) 133 (>89) 06/15/18 04:50 Glucose 210 mg/dL (70-100) H 06/15/18 04:50 POC Whole Bld Glucose 203 mg/dL (70 - 100) H 06/15/18 12:05 Glycated Hemoglobin 6.7 % (4.6-6.2) H 06/12/18 05:25 Estim Average Glucose 146 (70-100) H 06/12/18 05:25 Lactic Acid 2.5 mmol/L (0.5-2.2) H 06/11/18 10:50 Calcium 7.8 mg/dL (8.5-10.3) L 06/15/18 04:50 Total Bilirubin 1.0 mg/dL (0.2-1.0) 06/15/18 04:50 Direct Bilirubin 0.4 mg/dL (0.1-0.5) 06/11/18 09:05 AST 78 IU/L (10-42) H 06/15/18 04:50 ALT 146 IU/L (10-60) H 06/15/18 04:50 Alkaline Phosphatase 242 IU/L (42-121) H 06/15/18 04:50 Troponin I 0.06 ng/mL (<0.49) 06/10/18 11:23 B-Natriuretic Peptide 426 pg/mL (5-100) H 06/14/18 08:40 Total Protein 5.0 g/dL (6.7-8.2) L 06/15/18 04:50 Albumin 2.7 g/dL (3.2-5.5) L 06/15/18 04:50 Globulin 2.3 g/dL (2.1-4.2) 06/15/18 04:50 Albumin/Globulin Ratio 1.2 (1.0-2.2) 06/15/18 04:50 Lipase 26 U/L (22-51) 06/09/18 18:01 Urine Color YELLOW 06/09/18 23:25 Urine Clarity CLEAR (CLEAR) 06/09/18 23:25 Urine pH 5.5 PH (5.0-7.5) 06/09/18 23:25 Ur Specific [place] 1.020 (1.002-1.030) 06/09/18 23:25 Urine Protein 100 mg/dL (NEGATIVE) H 06/09/18 23:25 Urine Glucose (UA) 100 mg/dL (NEGATIVE) H 06/09/18 23:25 Urine Ketones NEGATIVE mg/dL (NEGATIVE) 06/09/18 23:25 Urine Occult Blood MODERATE (NEGATIVE) H 06/09/18 23:25 Urine Nitrite NEGATIVE (NEGATIVE) 06/09/18 23:25 Urine Bilirubin NEGATIVE (NEGATIVE) 06/09/18 23:25 Urine Urobilinogen 0.2 (NORMAL) E.U./dL (NORMAL) 06/09/18 23:25 Ur Leukocyte Esterase NEGATIVE (NEGATIVE) 06/09/18 23:25 Urine RBC None Seen /HPF (0-5) 06/09/18 23:25 Urine WBC 0-3 /HPF (0-3) 06/09/18 23:25 Ur Squamous Epith Cells NONE SEEN (<= Few) 06/09/18 23:25 Urine Bacteria None Seen /HPF (None Seen) 06/09/18 23:25 Ur Microscopic Review INDICATED 06/09/18 23:25 Urine Culture Comments NOT INDICATED 06/09/18 23:25 Last Dose Date UNK 06/12/18 05:25 Last Dose Time UNK 06/12/18 05:25 Digoxin 0.4 ng/mL 06/12/18 05:25 MRSA Surveill Initial NEGATIVE (NEGATIVE) 06/10/18 01:44 Sepsis Event Note (H) - Evaluation Current Stage of Sepsis: Ruled out
--- NOTE | 2018-06-15 13:22 | Discharge Plan ---
Discharge Plan Disposition: 02 Transfer Acute Care Hosp Condition: Serious No Smoking: If you smoke, Please STOP! Call for help. Follow-up with: NISSA LUCAS PA-C [Primary Care Provider] -
[2018-06-15 15:24] VITALS: BP 121/66
--- NOTE | 2018-06-18 14:53 | DISCHARGE SUMMARY ---
Physician: Jennifer Sosa MD DATE OF ADMISSION: 06/09/2018 DATE OF DISCHARGE: 06/15/2018 HISTORY OF PRESENT ILLNESS: This is a 68-year-old white male with a history of obesity, elevated cholesterol, remote stroke, GERD, kidney stones, anxiety, and metastatic prostate cancer to the bone. He was started on new chemotherapy 6 days ago at the [facility]. Over the following few days, he developed profound weakness, was not able to get up and walk in his house, was mostly in bed for 3 or 4 days and also not taking food or drink adequately. He was brought to the emergency room because of profound weakness. ER workup showed that he had mild shortness of breath when inquired on review of systems, and a D-dimer was elevated at 1005. He underwent a chest CTA, which showed multiple pulmonary emboli of the right side, no evidence of right heart strain, and diffuse osteoblastic skeletal disease consistent with metastases. His cardiac rhythm, in the ER, was new atrial flutter with 2:1 block and rapid ventricular rate of 140, and he also had evidence of dehydration with BUN of 43 and creatinine of 1.0 and an elevated lactic acid of 4.8, which rhonda further to 6.5. He was admitted to the ICU for management. HOSPITAL COURSE AND DISCHARGE DIAGNOSES 1. Pulmonary emboli. Patient was started on a heparin drip. The Nurse Monitoring reached out to a Automatic Grinding Machine Operator to confirm if Heparin could be used because of his admission CBC showing a platelet count of 60. Heparin was advised and chosen over Lovenox in case the patient would require any intervention, creating a potential delay if Lovenox had to be put on hold. After several days, he was transitioned to Eliquis at high doses for pulmonary embolism. He had no desaturations or respiratory distress during his stay. He underwent an Echo, and this showed normal right ventricular size and function and PA pressure of 30 mmHg. 2. Atrial flutter with rapid ventricular rate. The patient required IV diltiazem drip for rate control in the ICU. He was started on oral beta blockers, and his IV diltiazem was eventually transitioned to p.o. Cardizem, and he had adequate heart rate control in atrial flutter with 4:1 block and heart rates of 85. The anticoagulant, Eliquis had already been started for the above pulmonary emboli diagnosis. 3. Elevated lactic acid. A source of infection was searched for. He had abdomen and pelvis CT that showed no evidence of infection or bowel ischemia; however, the bony changes seen were consistent with prostate cancer with metastasis. His urinalysis was also unremarkable. A chest x-ray was unremarkable, and because of swelling of his legs, venous Dopplers were ordered to confirm any DVT. He only allowed a limited study because he was agitated, but the Doppler was negative for DVT on the right side. He was on no empiric antibiotics since there was no fever or elevation of white count. Aggressive IV hydration using crystalloids treated the lactic acidosis, and subsequent lactic acid levels dropped from 6.5 to 3.9, 3.8, 3.6 and finally 2.5 by 48 hours. Presumably, his significant volume depletion was the etiology. 4. Volume overload. Patient had the above treatment for volume depletion and lactic acidosis and his I's and O's revealed 7 liter positive fluid balance after 48 hours and an additional 7 liters after 4 days. With this, he had mild anasarca. His iv hydration was stopped and diuresis with Lasix 20 mg IV daily was ordered. The Echo had shown preserved LV function with hyperdynamic contractility early in his hospital stay and even an intracavitary gradient of 54 mmHg. 5. Prostate cancer with metastasis to the bone. The family informed us that he was in a clinical trial through the [facility], office of Dr. Sherie Lakhani. I reached out to her office and spoke to the nurse, who knew the patient well. She felt the patient was a candidate for transfer to [facility] because of his multiple problems. I attempted to have him accepted in transfer during mid hospital course. He was not accepted because his low platelet count (see below) and neurologic changes (see below) were felt to be able to be managed here. Because of persistent pancytopenia and severe weakness, I reached out again to the [facility] solid tumor team and again reported that he was in a clinical trial and felt he should be managed at , who are associated with the [facility]. Then he was very kindly accepted in transfer by Dr. Ginger Bettencourt, and he was transferred by ambulance on 06/15/2018. 6. Chemotherapy adverse reaction. The family brought in some literature about his clinical trial meds, after several days of this hospitalization. He had received Carboplatin and Docetaxel. Both can cause dropping white cells and platelets; the linda of counts dropping with Docetaxel was 5 to 9 days, which he probably experienced here, but the Carboplatin-induced pancytopenia was yet to linda at 21 days. In addition, the Carboplatin is reported to cause central neurotoxicity, including confusion, which he probably experienced while here (see below). For this reason also, the request for transfer was made. 7. Acute alteration in mental status. After 48 hours of hospitalization, the patient had alteration in mental status; he was oriented only to self, had delirium, was agitated and pulling out his IVs and wanted his Robertson out. He required sedation and restraints briefly. He underwent a head CT to evaluate for a stroke; this was negative for any abnormality. MRI was not available at that time. The patient was put on a CIWA protocol in case these symptoms were signs of alcohol withdrawal. At admission, however, he had denied any alcohol use, and when the mental status changes occurred, the family confirmed he was not an alcohol user. After 3 days of confusion, his sensorium cleared, he was oriented x3 and cooperative. He started to participate in PT, but he was only able to stand at bedside. 8. Thrombocytopenia due to drugs. As described above. 9. Hyponatremia. Throughout his hospital stay, the patient was hyponatremic, presumably from free water excess. His sodium ranged between 126 and 128. This was also considered as a potential etiology of his confusion; however, when his sensorium cleared, he continued to have sodium levels of 126 to 128. 10. Hoarseness of voice. In his final 2 days of hospitalization, he described a "frog in his throat." A chest x-ray done on that day revealed no infiltrate; however, volume overload was noted, and the Lasix dose was therefore continued. LABS AND IMAGING: Reviewed and summarized above. ALLERGIES: NONE. MEDICATIONS AT THE TIME OF TRANSFER 1. Lorazepam p.r.n. 2. Oxycodone p.r.n. 3. Lipitor 20 mg at night. 4. Dexamethasone 8 mg b.i.d. (this was his prehospital dose). 5. Colace 100 mg daily. 6. Morphine ER p.r.n. 7. Omeprazole 20 mg daily. CONDITION AT TRANSFER: Fair. PHYSICAL EXAMINATION VITAL SIGNS: Blood pressure 121/66, pulse 90 in atrial flutter with 4:1 block, afebrile, room air saturation 96%. HEENT: Unremarkable, except for pallor. NECK: Without JVD or carotid bruits. CHEST: Clear. HEART: Heart sounds normal. No murmur. ABDOMEN: Obese with a pannus. EXTREMITIES: 1+ pretibial edema. NEUROLOGIC: Grossly intact, except marked skeletal muscle weakness. FOLLOWUP: This will be determined after his stay at [facility]. Time required to complete this entire discharge, chart review, contact of accepting provider and [facility] personnel and dictation: 65 minutes. TD: 06/18/2018 13:50 CHIQUI
== END 2018-06-15 16:30 | disposition short-term general hospital (02) | DRG 176 ==
LOC: EDBD → EDUNIT# → ED 17:07 → MS2 20:51 → ICU 06-10 00:55 → MS2 06-13 00:43
PROVIDERS: ADMIT Internal Medicine; ATTEND Internal Medicine
DX: I26.99 Other pulmonary embolism without acute cor pulmonale (principal); C79.51 Secondary malignant neoplasm of bone; I48.92 Unspecified atrial flutter; E87.2 Acidosis; E87.1 Hypo-osmolality and hyponatremia; C61 Malignant neoplasm of prostate; Z92.21 Personal history of antineoplastic chemotherapy; E78.00 Pure hypercholesterolemia, unspecified; Z86.73 Personal history of transient ischemic attack (TIA), and cerebral infarction without residual deficits; K21.9 Gastro-esophageal reflux disease without esophagitis; Z87.442 Personal history of urinary calculi; F41.9 Anxiety disorder, unspecified; Z79.52 Long term (current) use of systemic steroids; E86.0 Dehydration; E66.9 Obesity, unspecified; Z68.34 Body mass index [BMI] 34.0-34.9, adult; E87.70 Fluid overload, unspecified; T45.1X5A Adverse effect of antineoplastic and immunosuppressive drugs, initial encounter; R41.82 Altered mental status, unspecified; Z78.1 Physical restraint status; D69.59 Other secondary thrombocytopenia; R49.0 Dysphonia; I10 Essential (primary) hypertension; G62.9 Polyneuropathy, unspecified; I48.91 Unspecified atrial fibrillation; R74.8 Abnormal levels of other serum enzymes; E87.5 Hyperkalemia; M54.9 Dorsalgia, unspecified; E78.5 Hyperlipidemia, unspecified; R33.9 Retention of urine, unspecified; R73.9 Hyperglycemia, unspecified
CPT/HCPCS: 36415; 70470; 71045; 71275; 74177; 80048; 80053; 80076; 80162; 80307; 81001; 81003; 83036; 83605; 83690; 83880; 84484; 85025; 85379; 85520; 85610; 85730; 87040; 87086; 87150; 93005; 93306; 96365; 96375; 99283; 99284